=== PATIENT | female | born 1975 | race Caucasian/White ===

== ENCOUNTER 2019-12-26 16:50 | Emergency (ER) | payer BC, SELFPAY ==
[2019-12-26 17:10] VITALS: BP 113/49; PULSE 85; RESP 18; TEMP 36.3; O2SAT 100
--- NOTE | 2019-12-26 17:26 | ED.FEMALEGU ---
HPI - Female Genitourinary General Chief complaint: Urogenital-Female Stated complaint: pos uti Time Seen by Provider: 12/26/19 17:26 Source: patient and RN notes reviewed History of Present Illness HPI Narrative: Patient is a 44-year-old female presents the urgent care with complaints of urinary frequency and urgency for the last 7 days. Patient states that she has had urinary tract infections frequently and also a history of BV. Patient denies any fever, chills, nausea, vomiting. No other acute complaints. Does not use anything [id number] for her symptoms. No acute distress noted. Patient had a plan of care. Related Data Home Medications Medication Instructions Recorded Confirmed alprazolam 0.5 mg BID 12/26/19 12/26/19 fluticasone propionate [Flovent puff INHALATION DAILY 12/26/19 HFA] paroxetine HCl 30 mg PO DAILY 12/26/19 12/26/19 Allergies Allergy/AdvReac Type Severity Reaction Status Date / Time No Known Allergies Allergy Verified 12/26/19 16:57 Review of Systems Review of Systems: Narrative: CONSTITUTIONAL: Denies fever, chills, or sweats. EYES: Denies visual changes, redness, or discharge. ENT: Denies rhinorrhea, congestion, sore throat, or otalgia. CARDIOVASCULAR: Denies chest pain, palpitations, or edema. RESPIRATORY: Denies cough or dyspnea. GASTROINTESTINAL: Denies abdominal pain, nausea, vomiting, or diarrhea. GENITOURINARY: Reports of urinary frequency and urgency SKIN: Denies rash or itching. MUSCULOSKELETAL: Denies back pain, joint pain, or myalgia. NEUROLOGIC: Denies headache, numbness, or weakness. All other systems reviewed are negative, except as documented in HPI. PMFSH Comments At the time of my signature, I reviewed and agree with the nursing past medical, surgical, social, and family history. There is no relevant family history pertinent to the patient complaint. Exam Narrative: Exam Narrative: GENERAL: This is a well-nourished, well-developed patient, in no apparent distress. HEAD: normocephalic, atraumatic. EYES: PERRL. Sclera clear/white. Vision is grossly intact. EARS: External ears normal NOSE: External nose normal with no obvious nasal discharge THROAT: Mucous membranes moist NECK: Neck supple CARDIOVASCULAR: Regular rate and rhythm without murmurs, gallops, or rubs. RESPIRATORY: Clear to auscultation. Breath sounds equal bilaterally. No wheezes, rales, or rhonchi. GASTROINTESTINAL: Abdomen soft, mild suprapubic tenderness, nondistended. SKIN: warm, intact with no suspicious lesions or rash, good texture and turgor. NEURO: awake, alert, and oriented to person, place and time. There were no obvious focal neurologic abnormalities. EXTREMITIES: No clubbing, cyanosis, or edema. BACK: Negative CVA tenderness Course Vital Signs Vital signs: Vital Signs Temperature 97.4 F L 12/26/19 17:10 Pulse Rate 85 12/26/19 17:10 Respiratory Rate 18 12/26/19 17:10 Blood Pressure 113/49 L 12/26/19 17:10 Pulse Oximetry 100 12/26/19 17:10 Temperature 97.4 F L 12/26/19 17:10 Pulse Rate 85 12/26/19 17:10 Respiratory Rate 18 12/26/19 17:10 Blood Pressure 113/49 L 12/26/19 17:10 Pulse Oximetry 100 12/26/19 17:10 Reviewed MDM - Female Genitourinary MDM Narrative Medical decision making narrative: Reviewed urine analysis results with the patient. She is aware that urine analysis was negative for urinary tract infection. Advised the patient to increase water intake and avoid sugary and caffeinated drinks. If you develop any increase in symptoms associated with blood in the urine, abdominal pain, low back pain, fever, nausea, vomiting?go to the emergency room. Follow-up with PCP within 2 to 5 days or for worsening symptoms or failure to improve. Differential Diagnosis Differential diagnosis: Likely urinary tract infection, bacterial vaginosis, cervicitis and cystitis Lab Data Attestation: I reviewed the patient's lab results. Labs: Urine Glucose
== END 2019-12-26 17:45 | disposition home or self-care (01) ==
PROVIDERS: Emergency Provider Nurse Practitioner Family; PCP Family Medicine
DX: R35.0 Frequency of micturition (principal); F41.9 Anxiety disorder, unspecified
CPT/HCPCS: 81003; 99212; G0463

== ENCOUNTER 2022-03-17 19:31 | Emergency (ER) | payer BC, OTHER, SELFPAY ==
[2022-03-17 19:45] VITALS: BP 112/65; PULSE 76; RESP 18; TEMP 36.6; O2SAT 100
--- NOTE | 2022-03-17 19:46 | ED.URI ---
HPI - URI/Sore Throat General Chief Complaint: Upper Respiratory Infection Stated Complaint: cough,chest congestion Time Seen by Provider: 03/17/22 19:47 Source: patient, RN notes reviewed and old records reviewed Mode of arrival: ambulatory Limitations: no limitations History of Present Illness HPI Narrative: 46-year-old female who presents to [facility] with complaints of increased cough, congestion since Wednesday. Patient reports history of asthma and states rescue inhaler is not effective presently to relieve her cough. Patient reports some nasal congestion and drainage denies any sore throat or any ear pain. Patient reports that she has been using her rescue inhaler for her cough but has not had any relief. Patient denies any acute shortness of breath or any wheezing. MD elicited complaint: cough, rhinorrhea and nasal congestion Pertinent past history: asthma Onset (ago): day(s) (2) Consistency: progressively worsening Description of mucous: clear Treatments prior to arrival: other (Inhalers and Xyzal) Related Data Home Medications Medication Instructions Recorded Confirmed albuterol sulfate 1 inh INHALATION DIRECTED 03/17/22 03/17/22 bupropion HCl 150 mg PO BID 03/17/22 03/17/22 dextroamphetamine-amphetamine 20 mg PO DAILY 03/17/22 03/17/22 [Adderall XR] fluticasone propionate [Flovent 1 mcg INHALATION DIRECTED 03/17/22 03/17/22 HFA] paroxetine HCl 30 mg PO BID 03/17/22 03/17/22 progesterone micronized 100 mg PO DAILY 03/17/22 03/17/22 zolpidem 10 mg PO HS 03/17/22 03/17/22 Allergies Allergy/AdvReac Type Severity Reaction Status Date / Time No Known Allergies Allergy Verified 03/17/22 19:51 Review of Systems Review of Systems: CONSTITUTIONAL: Denies fever, chills, or sweats. EYES: Denies visual changes, redness, or discharge. ENT: Positive for rhinorrhea, congestion, no sore throat, or otalgia. CARDIOVASCULAR: Denies chest pain, palpitations, or edema. RESPIRATORY: Positive cough denies any acute dyspnea. GASTROINTESTINAL: Denies abdominal pain, nausea, vomiting, or diarrhea. GENITOURINARY: Denies dysuria or hematuria. SKIN: Denies rash or itching. MUSCULOSKELETAL: Denies back pain, joint pain, or myalgia. NEUROLOGIC: Denies headache, numbness, or weakness. PSYCHIATRIC: Positive for history anxiety or depression. All systems reviewed & are unremarkable except as noted in HPI and below PMFSH Past Medical History Medical History (Updated 03/18/22 @ 00:00 by Desire Dapratima) ADHD (attention deficit hyperactivity disorder) Anxiety and depression Asthma Surgical History Surgical History (Updated 03/17/22 @ 19:57 by Eloise Bruce NP) H/O: hysterectomy S/P GRAIN DISTRIBUTOR shunt Social History Social History (Updated 03/17/22 @ 20:01 by Eloise Bruce NP) Smoking status: Former smoker Alcohol intake: current Alcohol use details: Social Substance use type: does not use Living arrangements: with family Gender identity (if verbalized by the patient): Female Comments At time of signature, agree with nursing past medical, surgical, social and family history. There is no relevant family history pertinent to the presenting complaint Exam Narrative: GENERAL: Well-appearing, well-nourished, and in no acute distress. HEAD: Normocephalic, atraumatic. EYES: PERRLA and EOMI. ENT, Nares with some redness,clear rhinorrhea,no epistaxis. Mucous membranes moist. TMs normal with good light reflex throat pink with no lesions or exudates no tonsillar swelling noted some postnasal drainage NECK: Supple. No lymphadenopathy CHEST: Clear to auscultation. No acute respiratory distress. Persistent cough reports exacerbation of asthma, no tachypnea noted. HEART: Regular rate and rhythm. No murmur heard. Normal peripheral pulses. ABDOMEN: Soft, nontender, nondistended, normal active bowel sounds. EXTREMITIES: Normal range of motion. No edema. SKIN: Warm, dry, no rash. NEURO: No focal deficits. Alert and o
== END 2022-03-17 20:12 | disposition home or self-care (01) ==
PROVIDERS: Emergency Provider Registered Nurse; PCP Student in an Organized Health Care Education/Training Program
DX: J45.901 Unspecified asthma with (acute) exacerbation (principal); F90.9 Attention-deficit hyperactivity disorder, unspecified type; F41.9 Anxiety disorder, unspecified; F32.A Depression, unspecified
CPT/HCPCS: 99213; G0463

== ENCOUNTER 2022-10-26 00:38 | Day surgery (SDC) | payer BC, OTHER, SELFPAY ==
[2022-10-13 12:57] VITALS: BMI 20.3
[2022-10-26 11:22] VITALS: BP 113/74; PULSE 72; RESP 18; TEMP 36.4; O2SAT 97
[2022-10-26] MEDS: LACTATED RINGERS 1,000 ML 150 ML IV CONT (11:32)
--- NOTE | 2022-10-26 11:34 | PM.HPGS ---
History of Present Illness History of Present Illness Consent: Risks, benefits, and alternatives have been discussed and questions answered. Patient agrees to proceed with procedure. Chief complaint: neoplasm screening Narrative: Elizabet Jones is a 47 year old female here for first screening colonoscopy Review of Systems Constitutional: Constitutional: Denies headache(s) and Denies weakness Eyes: Eyes: Denies blurry vision ENT: Reports Normal hearing present, Denies headache(s) and Denies neck pain Cardiovascular: Cardiovascular: Denies chest pain and Denies dyspnea Respiratory: Respiratory: Denies dyspnea Gastrointestinal: Gastrointestinal: Reports no additional gastrointestinal complaints Genitourinary: Genitourinary: Denies dysuria Musculoskeletal: Musculoskeletal: Denies neck pain Integumentary/Breasts: Skin/Breast: Denies dry skin Neurologic: Reports Normal hearing present, Denies headache(s) and Denies weakness Psychiatric: Psychiatric: Denies anxiety Endocrine: Endocrine: Denies change in body appearance Hematologic/Lymphatic: Hematologic/Lymphatic: Denies easy bleeding Allergic/Immunologic: Allergic/Immunologic: Denies urticaria PMFSH Past Medical History Medical History (Updated 10/26/22 @ 11:35 by Reggie Larkin MD) ADHD (attention deficit hyperactivity disorder) Anxiety and depression Asthma Colon cancer screening Surgical History Surgical History (System 07/29/22 @ 14:46 by Angeline Narayan) H/O: hysterectomy S/P 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 shunt Social History Social History (System 07/29/22 @ 14:46 by Angeline Narayan) Smoking status: Former smoker Tobacco type: cigarettes Alcohol intake: current Drinks per week: 5 Alcohol use details: Social Substance use type: does not use Living arrangements: alone Gender identity (if verbalized by the patient): Female Meds Home Medications and Allergies Home Medications Medication Instructions Recorded Confirmed Type fluticasone propionate 110 See Rx Instructions .Route 04/23/20 10/13/22 Rx mcg/actuation HFA aerosol inhaler .COMPLEX #24 grams (Flovent HFA) albuterol sulfate 90 mcg/actuation 1 inh inhalation DIRECTED PRN 03/17/22 10/13/22 History aerosol inhaler Shortness Of Breath bupropion HCl 150 mg 24 hr tablet, 150 mg PO DAILY 03/17/22 10/13/22 History extended release dextroamphetamine-amphetamine ER 20 mg PO DAILY 03/17/22 10/13/22 History 20 mg 24hr capsule,extend release (Adderall XR) paroxetine HCl 30 mg tablet 60 mg PO DAILY 03/17/22 10/13/22 History zolpidem 10 mg tablet 10 mg PO HS 03/17/22 10/13/22 History Allergies Allergy/AdvReac Type Severity Reaction Status Date / Time adhesive tape Allergy Rash Verified 10/26/22 11:21 Vital Signs Vital Signs - 24 hr 10/26/22 11:22 Temperature 97.6 F Pulse Rate 72 Respiratory Rate 18 Blood Pressure 113/74 Pulse Oximetry 97 Oxygen Delivery Room Air Exam Const: General: comfortable and no acute distress HENMT: Face/Nose/Sinus: Normal nares present Eyes: General: appearance normal, both eyes and all related structures Neck: Neck: no JVD Resp: Auscultation: clear to auscultation bilaterally Cardio: Rate: regular rate Rhythm: regular rhythm GI: Inspection: non-distended GI Palp: Yes Soft to palpation Skin: General skin exam: normal color Neuro: General: gait normal Speech: normal speech Extrem: General: normal to inspection Psych: Mental Status: mental status grossly normal Assessment and Plan Assessment and plan (1) Colon cancer screening: Code(s): Z12.11 - Encounter for screening for malignant neoplasm of colon Status: Acute Assessment and Plan: colonoscopy
--- NOTE | 2022-10-26 11:41 | P.PNAN_ITS ---
Anes - Initial Pre Proc Eval Procedure: Operation Date: 10/26/22 12:30 Proposed Procedures p Screening Colonoscopy - Reggie Larkin MD Date/Time: 10/26/22 11:41 Surgeon: Reggie Larkin MD Pre Op Diagnosis: neoplasm screening Patient Data Age: 47 Gender: F Height: 1.7 m Weight: 57.1 kg Last Vital Signs Temp 36.4 C 10/26/22 11: Pulse 72 10/26/22 11:22 Resp 18 10/26/22 11:22 BP 113/74 10/26/22 11:22 Pulse Ox 97 10/26/22 11:22 O2 Del Method Room Air 10/26/22 11:22 Allergies Allergy/AdvReac Type Severity Reaction Status Date / Time adhesive tape Allergy Rash Verified 10/26/22 11:21 Home Medications Medication Instructions Recorded Confirmed Type fluticasone propionate 110 See Rx Instructions .Route 04/23/20 10/13/22 Rx mcg/actuation HFA aerosol inhaler .COMPLEX #24 grams (Flovent HFA) albuterol sulfate 90 mcg/actuation 1 inh inhalation DIRECTED PRN 03/17/22 10/13/22 History aerosol inhaler Shortness Of Breath bupropion HCl 150 mg 24 hr tablet, 150 mg PO DAILY 03/17/22 10/13/22 History extended release dextroamphetamine-amphetamine ER 20 mg PO DAILY 03/17/22 10/13/22 History 20 mg 24hr capsule,extend release (Adderall XR) paroxetine HCl 30 mg tablet 60 mg PO DAILY 03/17/22 10/13/22 History zolpidem 10 mg tablet 10 mg PO HS 03/17/22 10/13/22 History Patient hx anesthesia problems: none Family hx anesthesia problems: none Results Review: All pre-operative results and documents have been reviewed as part of the pre-operative evaluation. [facility] Past Medical History Medical History ADHD (attention deficit hyperactivity disorder) Anxiety and depression Asthma Colon cancer screening Surgical History Surgical History H/O: hysterectomy S/P CHROME CLEANER shunt Social History Social History Smoking status: Former smoker Tobacco type: cigarettes Alcohol intake: current Drinks per week: 5 Alcohol use details: Social Substance use type: does not use Living arrangements: alone Gender identity (if verbalized by the patient): Female Anes - Eval Final PreProcedure Day of Procedure 10/26/22 11:41 Patient weight: normal Heart: regular rate and rhythm Lungs: clear to auscultation Neurological: alert and oriented Last oral intake: >/= 8 hours ASA classification: II Emergent: no Anesthesia type and monitoring: general GIVS and standard monitoring Results Review: All pre-operative results and documents have been reviewed as part of the pre- operative evaluation. Informed Consent: The patient's anesthetic plan and its attendant risks and benefits were discussed with the patient/family/POA. Questions were solicited and answers provided to the satisfaction of the patient/family/POA.
[2022-10-26 12:10] VITALS: BP 98/60; PULSE 71; RESP 20; O2SAT 100
[2022-10-26 12:20] VITALS: BP 104/65; PULSE 59; RESP 16; O2SAT 100
[2022-10-26 12:30] VITALS: BP 102/71; PULSE 63; RESP 15; O2SAT 100
== END 2022-10-26 12:42 | disposition home or self-care (01) ==
PROVIDERS: PCP Student in an Organized Health Care Education/Training Program; Visit Provider Internal Medicine Gastroenterology
PROC: 0DJD8ZZ Inspection of Lower Intestinal Tract, Via Natural or Artificial Opening Endoscopic (ICD-10-PCS; CPT 45378; principal; 2022-10-26 12:30)
DX: Z12.11 Encounter for screening for malignant neoplasm of colon (principal); F90.9 Attention-deficit hyperactivity disorder, unspecified type; F41.8 Other specified anxiety disorders; J45.909 Unspecified asthma, uncomplicated; Z87.891 Personal history of nicotine dependence; Z79.51 Long term (current) use of inhaled steroids
CPT/HCPCS: 45378; J2704; J7120

== ENCOUNTER 2022-11-17 18:21 | Emergency (ER) | payer BC, OTHER, SELFPAY ==
[2022-11-17 18:29] VITALS: BP 125/59; PULSE 71; RESP 16; TEMP 35.9; O2SAT 100
--- NOTE | 2022-11-17 18:36 | ED.GENADULT ---
HPI - General Adult General Chief complaint: Upper Respiratory Infection Stated complaint: Cough,Congestion,Shortness of Breath Time Seen by Provider: 11/17/22 18:36 Source: patient, RN notes reviewed and old records reviewed Mode of arrival: ambulatory Limitations: no limitations History of Present Illness HPI narrative: 47-year-old female with a history of asthma presents with cough, congestion and intermittent shortness of breath since Wednesday when she returned from a cruise. Patient has been using her inhaler. Use just prior to arrival. Is talking in full sentences no acute distress. Related Data Home Medications Medication Instructions Recorded Confirmed albuterol sulfate 90 mcg/actuation 1 inh inhalation DIRECTED PRN 03/17/22 11/17/22 aerosol inhaler Shortness Of Breath bupropion HCl 150 mg 24 hr tablet, 150 mg PO DAILY 03/17/22 11/17/22 extended release dextroamphetamine-amphetamine ER 20 mg PO DAILY 03/17/22 11/17/22 20 mg 24hr capsule,extend release (Adderall XR) paroxetine HCl 30 mg tablet 60 mg PO DAILY 03/17/22 11/17/22 zolpidem 10 mg tablet 10 mg PO HS 03/17/22 11/17/22 Allergies Allergy/AdvReac Type Severity Reaction Status Date / Time adhesive tape Allergy Rash Verified 11/17/22 18:55 Review of Systems Review of Systems: All systems reviewed & are unremarkable except as noted in HPI and below Constitutional: Constitutional: Reports no additional constitutional complaints Eyes: Eyes: Reports no additional eye complaints ENT: Reports system reviewed and no additional complaints, except as documented Cardiovascular: Cardiovascular: Reports no additional cardiovascular complaints, Denies chest pain and Denies dyspnea Respiratory: Respiratory: Reports as per HPI, Reports no additional respiratory complaints, Denies chest congestion, Reports cough, Reports dyspnea and Reports wheezing Gastrointestinal: Gastrointestinal: Reports no additional gastrointestinal complaints, Denies abdominal pain, Denies nausea and Denies vomiting Musculoskeletal: Musculoskeletal: Reports no additional musculoskeletal complaints Integumentary/Breasts: Skin/Breast: Reports system reviewed and no additional complaints, except as docu Neurologic: Reports system reviewed and no additional complaints, except as documented Psychiatric: Psychiatric: Reports no additional psychiatric complaints Allergic/Immunologic: Allergic/Immunologic: Reports no additional allergic/immunologic complaints PMFSH Past Medical History Medical History ADHD (attention deficit hyperactivity disorder) Anxiety and depression Asthma Colon cancer screening Surgical History Surgical History H/O: hysterectomy S/P 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 There is no relevant family history pertinent to the patient complaint. Exam Const: General: cooperative, healthy appearing, comfortable, no acute distress, well developed, alert and well nourished Nutritional Appearance: well nourished Orientation/consciousness: patient oriented x3 Limitations: no limitations HENMT: Head: normal to inspection Ears: hearing grossly normal bilaterally and external ears normal Face/Nose/Sinus: Normal external nose present, Normal nares present, Normal nasal mucous membranes and turbinates present and normal facial exam Face and sinus: normal facial exam Mouth: Yes Normal oral and palatal mucosa present, Yes lip normal and Yes moist m
== END 2022-11-17 18:59 | disposition home or self-care (01) ==
PROVIDERS: Emergency Provider Nurse Practitioner; PCP Student in an Organized Health Care Education/Training Program
DX: J40 Bronchitis, not specified as acute or chronic (principal); Z87.891 Personal history of nicotine dependence; F90.9 Attention-deficit hyperactivity disorder, unspecified type; F41.9 Anxiety disorder, unspecified; F32.A Depression, unspecified
CPT/HCPCS: 99213; G0463

== ENCOUNTER 2023-10-18 19:22 | Emergency (ER) | payer BC, SELFPAY ==
[2023-10-18 19:39] VITALS: BP 113/50; PULSE 82; RESP 16; TEMP 36; O2SAT 100
--- NOTE | 2023-10-18 20:47 | ED.URI ---
HPI - URI/Sore Throat General Chief Complaint: Upper Respiratory Infection Stated Complaint: Cough,Congestion Time Seen by Provider: 10/18/23 20:40 Source: patient and RN notes reviewed Mode of arrival: ambulatory Limitations: no limitations History of Present Illness HPI Narrative: Patient presents today with a 5 day history of cough, congestion, subjective fever, chills and sweats, chest tightness, and intermittent shortness of breath. She has been taking ibuprofen and using her Flovent and rescue albuterol inhaler. States she has been using her albuterol inhaler more frequently than normal. History of asthma. Related Data Home Medications Medication Instructions Recorded Confirmed albuterol sulfate 90 mcg/actuation 1 inh inhalation DIRECTED PRN 03/17/22 10/18/23 aerosol inhaler Shortness Of Breath bupropion HCl 150 mg 24 hr tablet, 150 mg PO DAILY 03/17/22 10/18/23 extended release dextroamphetamine-amphetamine ER 20 mg PO DAILY 03/17/22 10/18/23 20 mg 24hr capsule,extend release (Adderall XR) paroxetine HCl 30 mg tablet 60 mg PO DAILY 03/17/22 10/18/23 zolpidem 10 mg tablet 10 mg PO PRN PRN Insomnia 03/17/22 10/18/23 Allergies Allergy/AdvReac Type Severity Reaction Status Date / Time adhesive tape AdvReac Mild Rash Verified 10/18/23 20:25 Review of Systems Review of Systems: CONSTITUTIONAL: + subjective fever, chills, sweats EYES: Denies visual changes, redness, or discharge. ENT: Denies rhinorrhea, sore throat, or otalgia.+ congestion CARDIOVASCULAR: Denies chest pain, palpitations, or edema. RESPIRATORY: + cough, shortness of breath, chest tightness GASTROINTESTINAL: Denies abdominal pain, nausea, vomiting, or diarrhea. GENITOURINARY: Denies dysuria or hematuria. SKIN: Denies rash, itching, or wounds. MUSCULOSKELETAL: Denies back pain, joint pain, or myalgia. NEUROLOGIC: Denies headache, numbness, tingling, or weakness. PSYCH: Denies depression or anxiety. 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 Please see nursing chart for further information. There is no relevant family history pertinent to the presenting complaint Exam Narrative: GENERAL: Well-appearing, well-nourished, and in no acute distress. HEAD: Normocephalic, atraumatic. EYES: EOMI. No redness or drainage. Conjunctivae normal. ENT: Mucous membranes pink and moist. Nares mildly congested. No rhinorrhea. TMs normal bilaterally. Throat normal. Uvula midline. NECK: Normal AROM. Supple. No lymphadenopathy. CHEST: No respiratory distress. Clear to auscultation. HEART: Regular rate and rhythm. No murmur appreciated. Normal peripheral pulses. EXTREMITIES: Normal range of motion. No edema. SKIN: Warm, dry, no rash. Capillary refill normal. Normal skin turgor. NEURO: No focal deficits. Alert and oriented x3. Gait steady. PSYCH: Normal affect. No signs of depression or anxiety. Course Course Level of Care: Express Care Visit Vital Signs Vital signs: Vital Signs Temperature 96.8 F L 10/18/23 19:39 Pulse Rate 82 10/18/23 19:39 Respiratory Rate 16 10/18/23 19:39 Blood Pressure 113/50 L 10/18/23 19:39 Pulse Oximetry 100 1
== END 2023-10-18 20:53 | disposition home or self-care (01) ==
PROVIDERS: Emergency Provider Nurse Practitioner; PCP Student in an Organized Health Care Education/Training Program
DX: J45.901 Unspecified asthma with (acute) exacerbation (principal); J06.9 Acute upper respiratory infection, unspecified; Z79.899 Other long term (current) drug therapy; Z87.891 Personal history of nicotine dependence
CPT/HCPCS: 99213; G0463

== ENCOUNTER 2023-10-25 18:41 | Emergency (ER) | payer BC, SELFPAY ==
[2023-10-25 18:54] VITALS: BP 128/71; PULSE 88; RESP 18; TEMP 36.4; O2SAT 99
--- NOTE | 2023-10-25 19:28 | ED.EYEPROB ---
HPI - Eye Problem General Chief complaint: Eye Problems Stated complaint: eye irritation Time Seen by Provider: 10/25/23 19:23 Source: patient and RN notes reviewed Mode of arrival: ambulatory Limitations: no limitations History of Present Illness HPI Narrative: Patient presents today complaining of irritation to her right lateral eye x3 days. Denies itchiness. She has tried no rneu-oyp-eovirip treatment prior to arrival. She has been treated recently for upper respiratory symptoms with Augmentin prednisone. States these symptoms have significantly improved. Related Data Home Medications Medication Instructions Recorded Confirmed albuterol sulfate 90 mcg/actuation 1 inh inhalation DIRECTED PRN 03/17/22 10/25/23 aerosol inhaler Shortness Of Breath paroxetine HCl 30 mg tablet 60 mg PO DAILY 03/17/22 10/25/23 Allergies Allergy/AdvReac Type Severity Reaction Status Date / Time adhesive tape AdvReac Mild Rash Verified 10/25/23 19:05 Review of Systems Review of Systems: CONSTITUTIONAL: Denies body aches, fever, chills, or sweats. EYES: Denies visual changes, or discharge.+ redness and soreness to the right eye ENT: Denies rhinorrhea, congestion, sore throat, or otalgia. CARDIOVASCULAR: Denies chest pain, palpitations, or edema. RESPIRATORY: Denies cough or dyspnea. GASTROINTESTINAL: Denies abdominal pain, nausea, vomiting, or diarrhea. GENITOURINARY: Denies dysuria or hematuria. SKIN: Denies rash, itching, or wounds. MUSCULOSKELETAL: Denies back pain, joint pain, or myalgia. NEUROLOGIC: Denies headache, numbness, tingling, or weakness. PSYCH: Denies depression or anxiety. [facility] Past Medical History Medical History ADHD (attention deficit hyperactivity disorder) Anxiety and depression Asthma Colon cancer screening Surgical History Surgical History H/O: hysterectomy S/P PRINT COLOR OPERATOR shunt Social History Social History Smoking status: Former smoker Tobacco type: cigarettes Alcohol intake: current Drinks per week: 5 Alcohol use details: Social Substance use type: does not use Living arrangements: alone Gender identity (if verbalized by the patient): Female Comments Reviewed Exam Narrative: GENERAL: Well-appearing, well-nourished, and in no acute distress. HEAD: Normocephalic, atraumatic. EYES: EOMI. PERRL. Right eye: Scantly injected conjunctiva to the right lateral eye. No drainage. Lids and lashes normal. Left eye normal. ENT: Mucous membranes pink and moist. NECK: Normal AROM. CHEST: No respiratory distress. EXTREMITIES: Normal range of motion. No edema. SKIN: Warm, dry, no rash. Capillary refill normal. Normal skin turgor. NEURO: No focal deficits. Alert and oriented x3. Gait steady. PSYCH: Normal affect. No signs of depression or anxiety. Course Course Level of Care: Express Care Visit Vital Signs Vital signs: Vital Signs Temperature 97.6 F 10/25/23 18:54 Pulse Rate 88 10/25/23 18:54 Respiratory Rate 18 10/25/23 18:54 Blood Pressure 128/71 10/25/23 18:54 Pulse Oximetry 99 10/25/23 18:54 Oxygen Delivery Room Air 10/25/23 18:54 Temperature 97.6 F 10/25/23 18:54 Pulse Rate 88 10/25/23 18:54 Respiratory Rate 18 10/25/23 18:54 Blood Pressure 128/71 10/25/23 18:54 Pulse Oximetry 99 10/25/23 18:54 Oxygen Delivery Room Air 10/25/23 18:59 Reviewed MDM - Eye Problem MDM Narrative Medical decision making narrative: Recommend patient treat her eye irritation with some [id number]-uilelsi drops such as Zaditor. Patient agreeable to plan. Anticipatory guidance given. Differential Diagnosis Differential diagnosis: Likely corneal abrasion and conjunctivitis Critical Care Time Critical Care Time Critical Care Time: No Discharge Plan Di
== END 2023-10-25 19:33 | disposition home or self-care (01) ==
PROVIDERS: Emergency Provider Nurse Practitioner; PCP Student in an Organized Health Care Education/Training Program
DX: H10.89 Other conjunctivitis (principal); Z87.891 Personal history of nicotine dependence; J45.909 Unspecified asthma, uncomplicated; F41.9 Anxiety disorder, unspecified; F32.A Depression, unspecified
CPT/HCPCS: 99212; G0463

== ENCOUNTER 2023-12-21 11:49 | Emergency (ER) | payer BC, SELFPAY ==
[2023-12-21 12:10] VITALS: BP 123/71; PULSE 70; RESP 16; TEMP 36.7; O2SAT 100
--- NOTE | 2023-12-21 12:17 | ED.URI ---
HPI - URI/Sore Throat General Chief Complaint: Upper Respiratory Infection Stated Complaint: cough Source: patient and RN notes reviewed Mode of arrival: ambulatory Limitations: no limitations History of Present Illness HPI Narrative: 48 y/o female presented for c/o headache, body aches, cough, n/v/d, fever/chills. Onset yesterday. Reports tested positive for influenza. Denies sob, wheezing, or chest pain. MD elicited complaint: cough Related Data Home Medications Medication Instructions Recorded Confirmed albuterol sulfate 90 mcg/actuation 1 inh inhalation DIRECTED PRN 03/17/22 12/21/23 aerosol inhaler Shortness Of Breath paroxetine HCl 30 mg tablet 60 mg PO DAILY 03/17/22 12/21/23 dextroamphetamine-amphetamine 5 mg 5 mg PO DAILY 12/21/23 12/21/23 tablet valacyclovir 500 mg tablet 500 mg PO DAILY 12/21/23 12/21/23 zolpidem 10 mg tablet 10 mg PO HS 12/21/23 12/21/23 Allergies Allergy/AdvReac Type Severity Reaction Status Date / Time adhesive tape AdvReac Mild Rash Verified 12/21/23 12:02 Review of Systems Review of Systems: CONSTITUTIONAL: Endorses malaise, chills, sweats, fever EYES: Denies visual changes, redness, or discharge ENT: Reports rhinorrhea, denies otalgia, sore throat CARDIOVASCULAR: Denies chest pain, palpitations, edema RESPIRATORY: Reports cough, post nasal drainage. Denies dyspnea GASTROINTESTINAL: Denies abdominal pain, nausea, vomiting, diarrhea SKIN: Denies rash or itching MUSCULOSKELETAL: Endorses myalgia PMFSH Past Medical History Medical History ADHD (attention deficit hyperactivity disorder) Anxiety and depression Asthma Colon cancer screening Surgical History Surgical History H/O: hysterectomy S/P SMALL ANIMAL CARETAKER shunt Social History Social History Smoking status: Former smoker Tobacco type: cigarettes Alcohol intake: current Drinks per week: 5 Alcohol use details: Social Substance use type: does not use Living arrangements: alone Gender identity (if verbalized by the patient): Female Exam Narrative: GENERAL: mildly Ill-appearing, nontoxic no acute distress. EYES: PERRLA, conjunctivae clear ENT: Mucous membranes moist. TM pearly with dull light reflex bilaterally; no tragal tenderness. Oropharynx erythematous without lesions or exudate, no drooling, no hoarseness, no trismus, uvula midline. No tripod positioning, muffled voice, soft palate or pharyngeal wall bulging NECK: Supple. No lymphadenopathy CHEST: Clear to auscultation, breath sounds equal. No wheezing, rhonchi, rales, or stridor. No respiratory distress, speaks in full sentences. HEART: Regular rate and rhythm. No murmur heard. SKIN: Warm, dry, no rash. NEURO: Alert and oriented x3. Course Course Emergency Course: Patient is aware of diagnosis, understands and agrees to treatment plan. Anticipatory guidance given. Patient agrees to follow-up as directed and is aware of reasons to seek care at the emergency department. Portions of this record may have been created with voice recognition software Level of Care: Express Care Visit Vital Signs Vital signs: Vital Signs Temperature 98.1 F 12/21/23 12:10 Pulse Rate 70 12/21/23 12:10 Respiratory Rate 16 12/21/23 12:10 Blood Pressure 123/71 12/21/23 12:10 Pulse Oximetry 100 12/21/23 12:10 Oxygen Delivery Room Air 12/21/23 12:10 Temperature 98.1 F 12/21/23 12:10 Pulse Rate 70 12/21/23 12:10 Respiratory Rate 16 12/21/23 12:10 Blood Pressure 123/71 12/21/23 12:10 Pulse Oximetry 100 12/21/23 12:10 Oxygen Delivery Room Air 12/21/23 12:10 reviewed MDM - URI/Sore Throat MDM Narrative Medical decision making narrative: Influenza positive. Discussed risks/benefits of Tamiflu, pt requests Rx. Advised supportive measur
== END 2023-12-21 12:22 | disposition home or self-care (01) ==
PROVIDERS: Emergency Provider Nurse Practitioner Family; PCP Student in an Organized Health Care Education/Training Program
DX: J10.1 Influenza due to other identified influenza virus with other respiratory manifestations (principal); Z87.891 Personal history of nicotine dependence; J45.909 Unspecified asthma, uncomplicated; F90.9 Attention-deficit hyperactivity disorder, unspecified type; F41.9 Anxiety disorder, unspecified; F32.A Depression, unspecified; Z98.2 Presence of cerebrospinal fluid drainage device
CPT/HCPCS: 87804; 99213; G0463

== ENCOUNTER 2024-09-17 15:33 | Emergency (ER) | payer BC, SELFPAY ==
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
[2024-09-17 15:44] VITALS: BP 128/72; PULSE 62; RESP 16; TEMP 36.7; O2SAT 100
== END 2024-09-17 16:13 | disposition home or self-care (01) ==
PROVIDERS: Emergency Provider Nurse Practitioner Family; PCP Student in an Organized Health Care Education/Training Program
DX: J01.90 Acute sinusitis, unspecified (principal); J45.901 Unspecified asthma with (acute) exacerbation; F41.9 Anxiety disorder, unspecified; Z87.891 Personal history of nicotine dependence; Z98.2 Presence of cerebrospinal fluid drainage device
CPT/HCPCS: 99213; G0463

== ENCOUNTER 2025-03-24 18:52 | Emergency (ER) | payer SELFPAY ==
--- NOTE | 2025-03-24 18:54 | ED.URI ---
HPI - URI/Sore Throat General Chief Complaint: Upper Respiratory Infection Stated Complaint: sinus infectiond Time Seen by Provider: 03/24/25 18:53 Source: patient Mode of arrival: ambulatory Limitations: no limitations History of Present Illness HPI Narrative: patient is a 49-year-old female who presents with cough, wheezing, congestion, sinus pressure for 5 days. Patient has history of asthma and has been using albuterol inhaler. Denies any fever, chills, nausea, vomiting, diarrhea. Has also used [id number] Sudafed and Mucinex. Related Data Home Medications ?Medication ?Instructions ?Recorded ?Confirmed ?Last Taken ?Type paroxetine HCl 30 mg tablet 60 mg PO DAILY 03/17/22 03/24/25 10/25/22 History dextroamphetamine-amphetamine 5 mg 25 mg PO DAILY 12/21/23 09/27/24 Unknown History tablet zolpidem 10 mg tablet 10 mg PO HS 12/21/23 03/24/25 Unknown History bupropion HCl 150 mg tablet,12 hr 150 mg PO BID 09/17/24 03/24/25 Unknown History sustained-release (Wellbutrin SR) albuterol sulfate 90 mcg/actuation inhalation 03/24/25 Unknown History aerosol inhaler bupropion HCl 300 mg 24 hr tablet, mg PO 03/24/25 Unknown History extended release lisdexamfetamine 50 mg capsule mg 03/24/25 Unknown History (Vyvanse) spironolactone 50 mg tablet mg 03/24/25 Unknown History Allergies Allergy/AdvReac Type Severity Reaction Status Date / Time adhesive tape Allergy Mild Rash Verified 03/24/25 18:54 Review of Systems Review of Systems: All systems reviewed & are unremarkable except as noted in HPI and below Constitutional: Constitutional: Denies chills, Denies fatigue, Denies fever(s), Denies headache(s), Denies malaise and Denies weakness Eyes: Eyes: Denies blurry vision, Denies itchy eyes and Denies loss of vision ENT: Denies otalgia, Denies headache(s), Reports nasal congestion, Denies sinus pain, Reports sinus pressure and Denies sore throat Cardiovascular: Cardiovascular: Denies chest pain, Denies irregular heart rhythm and Denies dyspnea Respiratory: Respiratory: Reports cough, Denies dyspnea and Reports wheezing Gastrointestinal: Gastrointestinal: Denies abdominal pain, Denies diarrhea, Denies nausea and Denies vomiting Musculoskeletal: Musculoskeletal: Denies back pain, Denies myalgias and Denies arthralgias Integumentary/Breasts: Skin/Breast: Denies pruritus and Denies rash Neurologic: Denies headache(s), Denies loss of vision and Denies weakness Psychiatric: Psychiatric: Reports no additional psychiatric complaints Endocrine: Endocrine: Denies fatigue Allergic/Immunologic: Allergic/Immunologic: Denies itchy eyes PMFSH Past Medical History Medical History Colon cancer screening Anxiety and depression ADHD (attention deficit hyperactivity disorder) Asthma Surgical History Surgical History H/O: hysterectomy S/P DATA INTEGRATION ANALYST shunt Social History Social History Smoking status: Former smoker Tobacco type: cigarettes Alcohol intake: current Drinks per week: 5 Alcohol use details: Social Substance use type: does not use Living arrangements: alone Gender identity (if verbalized by the patient): Female Comments At time of signature, agree with nursing past medical, surgical, social and family history. There is no relevant family history pertinent to the presenting complaint. Exam Const: General: cooperative, healthy appearing, comfortable, no acute distress and well nourished Nutritional Appearance: well nourished Orientation/consciousness: patient oriented x3 Limitations: no limitations HENMT: Head: normal to inspection, normocephalic and atraumatic Ears: hearing grossly normal bilaterally, external ears normal, TM's normal bilaterally, EAC's normal and no periauricular adenopathy Face/Nose/Sinus: Normal external nose present, Abnormal mucous membranes and turbinates present erythematous bilateral and diffuse, normal facial exam, sinuses nontender and face symmetric Face and sinus: normal facial exam, sinuses nontender and face symmetric Mouth: Yes Normal oral and palatal mucosa present, Yes lip normal, Yes tongue normal, Yes Normal salivary glands and ducts present, Yes oropharynx normal and Yes moist mucous membranes Teeth and gingiva: dentition normal Throat: posterior oropharynx normal, tonsils normal and uvula midline Eyes: General: appearance normal, both eyes and all related structures Alignment and Position: alignment normal and position normal Periorbital: periorbital findings normal Eyelids: eyelids normal Pupils: Equal, round and reactive pupils present Neck: Neck: normal visual inspection, full ROM, no lymphadenopathy and supple Chest: Chest palpation & inspection: normal inspection of the chest and normal palpation of entire chest wall Resp: Effort & Inspection: normal respiratory effort, able to speak in complete sentences and Actively coughing productive Auscultation: no crackles, no rales, no rhonchi and wheezes inspiratory wheezes and right upper Cardio: Rate: regular rate Rhythm: regular rhythm Heart sounds: S1 normal heart sound present and S2 normal heart sound present GI: Inspection: normal to inspection Skin: General skin exam: normal color and no rashes or lesions noted Neuro: General: patient oriented x3 and moves all extremities Cranial nerves: Yes Equal, round and reactive pupils present Speech: normal speech Gait exam (Neuro): Normal gait present Extrem: General: normal to inspection, full ROM and no edema Psych: Appearance: grossly normal and well kempt Mental Status: mental status grossly normal Speech and movement: Normal speech and movement present Affect: normal affect Attitude: cooperative Thought process: Normal thought process present Course Course Emergency Course: Discharge instructions reviewed with patient, as well as provided in writing per nursing staff. The instructions also include specific and strict return/GO TO THE ER as well as f/u information. All questions have been answered, and the patient deny any further questions with discharge and discharge plan. Portions of this record may have been created with voice recognition software Level of Care: Express Care Visit Vital Signs Vital signs: Reviewed MDM - URI/Sore Throat MDM Narrative Medical decision making narrative: Pt well hydrated appearing, in no respiratory distress, hemodynamically stable. Recommend supportive care. The patient is stable at time of discharge the clinical impression was discussed and the patient was given the opportunity to ask questions, which were addressed as completely as possible given the information available at present. Anticipatory guidance and return to care precautions were discussed and the importance of primary care follow-up was stressed and encouraged. The patient voiced understanding of the plan, indications to return, and the need for follow-up. Exam findings show no acute concerns or changes Patient is appropriate for outpatient treatment and follow-up. Differential diagnosis considered: Bardales virus, strep pharyngitis, allergic rhinitis, upper respiratory tract infection, sinusitis, rhinosinusitis, nasopharyngitis. viral pharyngitis, otitis media, otitis externa, otitis effusion, foreign body, cerumen impaction, viral syndrome, and influenza.? Medical Records Attestation: I reviewed the patient's medical records. Discharge Plan Discharge Clinical Impression: Upper respiratory infection with cough and congestion, History of asthma Patient Disposition: Home Condition: Stable Instructions: Upper Respiratory Infection (ED) Additional Instructions: Take antibiotic as prescribed. Take steroids per package instructions. Use Tessalon Perles as needed for cough. Use inhaler with spacer as needed. Other symptomatic treatments include: -Alternate Tylenol and Motrin per package directions for fever or pain: Tylenol 650-1000mg by mouth every 4-6 hours. Do not exceed 4000mg in 24 hours. Advil (Ibuprofen) 600 mg by mouth every 6 hours. Do not exceed 2400mg in 24 hours. 8 AM: Tylenol 11 AM: Ibuprofen 2 PM: Tylenol 5 PM: Ibuprofen 8 PM: Tylenol 11 PM: Ibuprofen 2 AM: Tylenol 5 AM: Ibuprofen -Antihistamine medication such as Benadryl at night and Zyrtec/Claritin/Yana during the day can help improve symptoms. -Use Flonase twice a day for 5 days then daily to help reduce the inflammation and dry up your sinuses. -You can also use Sudafed or Mucinex. Be sure to drink plenty of water with these medications at least 8 ounces with every dose and it is important to drink 8 to 10 glasses of water per day. Water is a natural decongestant -Eat and drink things that are easy to swallow, like tea or soup, or popsicles. -Oral rinses such as: Salt water gargles and/or may use topical anesthetic (eg. Chloraseptic spray) or lozenges to relieve dryness or throat pain). -Frequent hand washing or hand menswear salesperson is one of the best ways to prevent spread of infection. -Using a vaporizer or humidifier at night will also help thin secretions and help with coughing up phlegm. Call your Primary Care Doctor and make a follow-up appointment in 3 days. If your cough worsens, you develop a fever greater than 103, you develop shaking chills, a fast heartbeat, trouble breathing and/or feel you are are breathing much faster than usual, call your Primary Care Doctor or go to the ER. Patient Language: [place] Prescriptions: New (DME) Aerochamber MV Spacer See Rx Instructions .Route Qty: 1 0RF Rx Instructions: As directed benzonatate 100 mg capsule 100 mg PO BID PRN (Reason: cough) Qty: 14 0RF methylprednisolone [Medrol (Elfego)] 4 mg tablets,dose pack See Rx Instructions .ROUTE .COMPLEX Qty: 21 0RF Rx Instructions: orally per package directions albuterol sulfate 90 mcg/actuation HFA aerosol inhaler 2 puff inhalation QID PRN (Reason: shortness of breath or wheezing) Qty: 6.7 0RF amoxicillin-pot clavulanate 875-125 mg tablet 1 tablet PO Q12H 10 Days Qty: 20 0RF No Action spironolactone 50 mg tablet bupropion HCl 300 mg tablet extended release 24 hr PO lisdexamfetamine [Vyvanse] 50 mg capsule albuterol sulfate 90 mcg/actuation HFA aerosol inhaler INHALATION paroxetine HCl 30 mg tablet 60 mg PO DAILY zolpidem 10 mg tablet 10 mg PO HS dextroamphetamine-amphetamine 5 mg tablet 25 mg PO DAILY bupropion HCl [Wellbutrin SR] 150 mg Tablet Sustained-Release 12 Hr 150 mg PO BID (DME) Aerochamber Plus Z Stat Spacer See Rx Instructions .Route Qty: 1 0RF Rx Instructions: As directed fluticasone propionate [Flovent HFA] 110 mcg/actuation HFA aerosol inhaler See Rx Instructions .ROUTE .COMPLEX Qty: 24 0RF Dose Instruction: USE 1 PUFF TWICE DAILY Rx Instructions: USE 1 PUFF DAILY Follow-up/Referrals: Gennaro,Baldev Shine APRN [Primary Care Provider] - 3 Days Time of Disposition: 19:10
--- OUTSIDE RECORDS SUMMARY | 2025-03-24 18:54 | XMS_ITS | Clinical Summary ---
Author Organization [facility] Address [address] [place] [address] Phone Care Team Providers Care Insulation Batting Machine Operator Name Role Phone Rick Potts MD Unavailable [phone] Baldev Burdick PROFESSOR OF GEOLOGY Primary Care Provider [phone] Allergies Active Allergy Reactions Criticality Noted Date Comments Adhesive Rash Medium 10/06/2021 Medipore tape Tapentadol Rash Medium 10/06/2021 Medipore tape Vortioxetine Hives,Itching,Urticaria Medium 03/07/2021 Medications zolpidem (AMBIEN) 5 mg tablet take 1 Tablet by oral route every day at bedtime 0 0 4 Active fluticasone (FLOVENT DISKUS) 50 mcg/actuation diskus inhaler inhale 1 puff by inhalation route 2 times every day 0 2 Active fluticasone (FLONASE) 50 mcg/actuation nasal spray spray 1 spray by intranasal route every day in each nostril 0 2 Active copper (PARAGARD T 380A) 380 square mm IUD vaginally inserted, good for 10 years 0 Device 0 7 02/23/20 27 Active acetaminophen (TYLENOL) 325 mg tabletIndicatio ns:Fever Take 2 tablets (650 mg total) by mouth every 4 (four) hours as needed for pain. 30 tablet 8 Active Additional Information Patient not taking.Reported on 01/04/2019 ALPRAZolam (XANAX) 0.5 mg tablet PRN 5 8 Active cetirizine 10 mg tablet,disinteg rating daily. 2 Active PARoxetine (PAXIL) 40 mg tablet Active zolpidem (AMBIEN) 10 mg tabletIndicatio ns:Sleep-Onset Insomnia Take 10 mg by mouth. 6 Active cholecalciferol (cholecalcifero l) 400 unit capsule Take by mouth. 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 Hospital Encounter [facility] - Imaging [address] [facility] [facility] [address] [place] [id number] Screening mammogram, encounter for Discharge Disposition: Discharge to home or self care from Last 3 Months Immunizations Immunization Administration Dates Next Due Influenza, Quadrivalent, Spl it, Preservative Free, Intramuscular 12/16/2020 Influenza, Trivalent, IM (MDV) 01/03/2014 Influenza, Unspecified 09/10/2022,2021,10/04/2018,01/03 Pneumococcal Conjugate Pcv20 01/22/2023 Tdap 12/16/2020 Surgical History Surgery Date Site/Laterality Comments OTHER SURGICAL HISTORY 1996 Hydrocephalus: [employer]ICE [employer] DEVELOPMENT Shunt OTHER SURGICAL HISTORY Dysplasia of cervix: Cryotherapy OTHER SURGICAL HISTORY 2007 shunt revision OTHER SURGICAL HISTORY 2009 bunion removal AUGMENTATION MAMMOPLASTY 2012 augmentation mammoplasty OTHER SURGICAL HISTORY 2013 Malignant melanoma: Excision Medical History Medical History Date Comments Hx Other Medical 1996 Hydrocephalus Hx Other Medical Dysplasia of ce rvix Hx Other Medical 2002 Post dep ression Malignant melanoma (HCC) 2014 Maligna nt melanoma; Comments: CCK 04/23/2014 - wide local excision, sentinal node biopsy and groin discetion, Stage 3A Family History Medical History Relation Name Comments Hypertension Father Throat cancer Maternal Grandfather Hypertension Mother Breast cancer Mother's Sister Cancer, sarah ast; Other Other 1 No family histo ry of Ovarian cancer; Other Other 2 No family histo ry of Cancer, colon; Heart disease Paternal Grandfather Hypertension Paternal Grandfather Breast cancer Paternal Grandmother Hypertension Son Stroke Son Relation Name Status Comments Father Maternal Grandfather Mother Mother's Sister Other 1 Other 2 Paternal Grandfather Paternal Grandmother Son Social History Tobacco Use Types Packs/Day Years Used Date Smoking Tobacco: Former Smokeless Tobacco: Never Tobacco Cessation:Counseling Given: No Alcohol Use Standard Drinks/Week Comments Yes 0 (1 standard drink = 0.6 oz pur e alcohol) Personal Safety Answer Date Recorded Have you ever been in or are you currently in a harmful physical or emotional relationship or is someone making you feel afraid or unsafe? Denies 12/07/2024 Comments No Sex and Gender Information Value Date Recorded Sex Assigned at Not on file Legal Sex Female 2:07 AM NATURAL DEVELOPER Gender Identity Not on file Sexual Orientation Not on file Obstetrics History Last Filed Vital Signs Vital Sign Reading Time Taken Comments Blood Pressure 110/65 12/08/2024 1:50 AM NATURAL DEVELOPER Pulse 65 12/08/2024 1:50 AM NATURAL DEVELOPER Temperature 36.9 C (98.5 F) 12/07/2024 9:46 PM NATURAL DEVELOPER Respiratory Rate 18 12/08/2024 1:50 AM NATURAL DEVELOPER Oxygen Saturation 96% 12/08/2024 1:50 AM NATURAL DEVELOPER Inhaled Oxygen Concentration - - Weight 60.1 kg (132 lb 7.9 oz) 12/07/2024 9:46 P M NATURAL DEVELOPER Height 170.2 cm (5' 7 ) 12/07/2024 9:46 PM NATURAL DEVELOPER Body Mass Index 20.75 12/07/2024 9:46 PM NATURAL DEVELOPER Plan of Treatment Health Maintenance Due Date Last Done Comments Colon Cancer Screening-Colonoscopy 1974 Depression Screening 1974 Hepatitis C Screening 1974 Hepatitis B Screening 1992 Regular Well Visit/Exam 18-64 1992 Zoster Vaccine (1 of 2) 1993 Covid-19 Vaccine (3 - Pfizer risk series) 07/29/2021 07/01/2021, 06/05/2021 Influenza Vaccine (#1) 2024 2, 11/23/2021, 12/16/2020, Additional history exists Breast Cancer Screening-Mammogram 01/10/2026 01/10/2025, 09/22/2022, 07/25/2021, Additional history exists DTaP/Tdap/Td Vaccine (2 - Td or Tdap) 12/16/2030 12/16/2020 Cervical Cancer Screening Discontinued 2015, 10/09/2013, 10/09/2013 Pneumococcal vaccine <65 Completed 01/22/2023 Medical Devices Implanted Type Area Carrier Loader Device Identifier Shelf Expiration Date Model / Serial / Lot CodSelectron/[employer] [id number] Bactiseal 14cm Csf Ventricular Catheter External Drainage Sterile - S0 - [id number] Implanted:Qty: 1 on 08/02/2018 by Lenard Lopez Jr., MD at [facility] Shunt [employer] [id number] 11/21/2018 [id number] / 0 / [id number] Procedures Procedure Name Priority Date/Time Associated Diagnosis Comments SCREENING MAMMOGRAM BILATERAL W TIMOTEO W IMPLANTS Schedule Routine, Read Routine (OP Routine) 01/10/2025 4:00 PM NATURAL DEVELOPER Screening mammogram, encounter for GENITAL FLUID PAP SMEAR, THIN PREP AND HPV Routine 06/30/2016 12:00 AM CDT from Last 3 Months or Most Recently Relevant to Health Maintenance Results * Screening Mammogram Bilateral W Timoteo W Implants (01/10/2025 4:00 PM NATURAL DEVELOPER) Anatomical Region Laterality Modality Breast Bilateral Mammography Narrative 01/11/2025 6:30 AM NATURAL DEVELOPER Examination: Screening Mammogram Bilateral W Timoteo W Implants: 01/10/25 Prior Study Comparisons: Relevant prior studies available at the time of interpretation were reviewed. Findings: Bilateral There is no suspicious mass, calcification, or distortion in either breast. The breasts are extremely dense, which lowers the sensitivity of mammography. The patient will be notified of results by letter. Impression: BI-RADS ATLAS category (overall): 2 - Benign Routine Screening Mammogram in 1 Yr is recommended for bilateral Overall Assessment: 2 - Benign us Self Screening Mammogram IMG MAMMO PROCEDURES Fi nal Result * Genital fluid pap smear, thin prep and HPV (06/30/2016 12:00 AM CDT) Variable comment CDR HISTORICAL RESULTS Comment:NEGATIVE FOR INTRAEP ITHELIAL LESION AND MALIGNANCY. Statement of adequacy CDR HISTORICAL RESULTS Comment: Satisfactory for evaluation. Endocervical and/or squamous metaplastic cells (endocervical component) are present. Human papillomavirus, genotype 18/45 Negative Negative CDR HISTORICAL RESULTS Comment: This test detects fourteen high-risk HPV types (16/18/31/33/35/39/45/ 51/52/56/58/59/66/68) without differentiation. Genital 06/30/2016 us Historical Provider LAB CYTOLOGY ORDERABLES F inal Result CDR HISTORICAL RESULTS from Last 3 Months or Most Recently Relevant to Health Maintenance Insurance [facility] CHOICE PLUS [facility] CHOICE PLUS [facility] ACCESS CHOICE [id number] [place] [id number] Advance Directives For more information, please contact: [phone] * Full Code (Latest Code Status on File) Date Activated Date Inactivated Comments 08/01/2018 11:05 PM 08/03/2018 4:45 PM Care Teams Insulation Batting Machine Operator Relationship Specialty Start Date End Date Baldev Burdick NP [address] [place] [address] PCP - General Nurse Practitioner 12/08/24 Rick Potts MD [address] [facility] [address] [place] [address] Consulting Physician Endocrinology Diabetes & Metabolism 11/18/21
--- OUTSIDE RECORDS SUMMARY | 2025-03-24 18:54 | XMS_ITS ---
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 Past Treatment and Therapy Plans No past plan information found. Lifetime Dose Tracking * Chemical Lifetime Dose Automatic Entry Manual Entr y Dose Length Product 981 mGy-cm 981 mGy-cm 0 mGy-cm
--- OUTSIDE RECORDS SUMMARY | 2025-03-24 18:54 | XMS_ITS | Clinical Summary ---
Author Organization [facility] Address [address] [place] [address] Care Team Providers Care Platemaker Name Role Phone Unavailable Primary Care Provider Unavailabl e Allergies Active Allergy Reactions Criticality Noted Date Comments Tape Rash Low 10/06/2021 Medipore tape Tapentadol Rash Medium 10/06/2021 Medipore tape Vortioxetine Hives,Itching 03/07/2021 Medications vitamin D3, cholecalciferol, 10 MCG (400 UNIT) tablet Active cetirizine (ZYRTEC) 10 MG tablet Active acetaminophen 500 MG tablet Take 1 tablet (500 mg total) by mouth every 6 (six) hours as needed. Active albuterol sulfate HFA (PROAIR HFA) 108 (90 Base) MCG/ACT inhalerIndication s:Mild persistent asthma without complication (HHS/HCC) Inhale 2 puffs into the lungs every 6 (six) hours as needed for Wheezing. 18 g 2 2 Active buPROPion XL (WELLBUTRIN XL) 150 MG 24 hr tabletIndications :ADHD (attention deficit hyperactivity disorder), combined type,Mild episode of recurrent major depressive disorder,Anxiety TAKE 2 TABLETS BY MOUTH DAILY NEEDED 180 tablet 3 Active fluticasone propionate (FLONASE) 50 MCG/ACT nasal sprayIndications: Acute non-recurrent maxillary sinusitis SHAKE LIQUID AND USE 1 SPRAY IN EACH NOSTRIL DAILY 48 g 3 Active fluticasone (FLOVENT HFA) 110 MCG/ACT inhalerIndication s:Mild persistent asthma without complication (HHS/HCC) Inhale 2 puffs into the lungs daily. 36 g 1 4 Active valACYclovir (VALTREX) 500 MG tabletIndications :Fever blister Take 1 tablet (500 mg total) by mouth daily. 14 tablet 4 Active eszopiclone (LUNESTA) 2 MG tabletIndications :Primary insomnia Take 1 tablet (2 mg total) by mouth nightly at bedtime. Take immediately before bedtime 30 tablet 2 4 Active zolpidem (AMBIEN) 10 MG tabletIndications :Primary insomnia Take 1 tablet (10 mg total) by mouth nightly as needed for Sleep. 30 tablet 2 4 Active amphetamine-dextr oamphetamine XR (ADDERALL XR) 25 MG 24 hr capsuleIndication s:ADHD (attention deficit hyperactivity disorder), combined type Take 1 capsule (25 mg total) by mouth every morning. 30 capsule 4 Active PARoxetine (PAXIL) 30 MG tabletIndications :Mild episode of recurrent major depressive disorder Take 2 tablets (60mg) by mouth daily 180 tablet 4 Active amphetamine-dextr oamphetamine (ADDERALL) 5 MG tabletIndications :ADHD (attention deficit hyperactivity disorder), combined type Take 1 tablet (5 mg total) by mouth daily as needed. 30 tablet 4 Active Active Problems Problem Noted Date Diagnosed Date Conjunctivitis 11/12/2023 Upper respiratory infection 11/12/2023 Status post hysterectomy 10/09/2021 Mild episode of recurrent major depressive disor heladio 12/16/2020 Anxiety 12/16/2020 Primary insomnia 12/16/2020 ADHD (attention deficit hype ractivity disorder), combined type 06/06/2020 Mild persistent asthma without complication ([facility]) 06/06/2020 BMI 20.0-20.9, adult 06/06/2020 Displacement of ventricular intracranial shunt 0 08/12/2018 Hydrocephalus ([facility]) 07/29/2018 Malignant melanoma of skin ([facility]) 10/2014 Resolved Problems Problem Noted Date Diagnosed Date Resolved Date Depression with anxiety 06/06/2020/2 03/2021 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, 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 12/29/2023 Immunizations Immunization Administration Dates Next Due Fluzone 6 Months+ Quad (0.5 mL Prefilled Syringe) 12/16/2020 Influenza (Generic) 09/10/2022,,10/04/2018,2013 Pneumococcal (Prevnar 20) 01/22/2023 Tdap (Historical Only-select from magnify glass) 12/16/2020 Family History Medical History Relation Comments Anxiety Brother 1 Depression Brother 1 Anxiety Brother 2 Depression Brother 2 No Known Problems Daughter Anxiety Father Depression Father Hypertension Father Obesity Father blind Father No Known Problems Maternal Grandfather No Known Problems Maternal Grandmother Anxiety Mother Hypertension Mother No Known Problems Paternal Grandfather No Known Problems Paternal Grandmother Anxiety Sister Depression Sister Asthma Son adhd Son Relation Status Comments Brother 1 Alive Brother 2 Alive Daughter Alive Father Alive Maternal Grandfather Maternal Grandmother Mother Alive Paternal Grandfather Paternal Grandmother Sister Alive Son Alive Social History Tobacco Use Types Packs/Day Years Used Date Smoking Tobacco: Former Cigarettes 0.3 12 0 06/06/1989 - 06/06/2001 Smokeless Tobacco: Never Tobacco Cessation:Counseling Given: Not Answered Alcohol Use Standard Drinks/Week Comments Yes 10 (1 standard drink = 0.6 oz pu re alcohol) AUDIT-C Answer Date Recorded Q1: How often do you have a drink containing alc ohol? 2-4 times a month 06/06/2020 Q2: How many drinks containi ng alcohol do you have on a typical day when you are drinking? 3 or 4 06/06/2020 Q3: How often do you have si x or more drinks on one occasion? Never 06/06/2020 PHQ-2 Answer Date Recorded Patient Health Questionnaire-2 Score 0 12/29/2023 Comments No Sex and Gender Information Value Date Recorded Sex Assigned at Not on file Legal Sex Female 12:12 PM CDT Gender Identity Not on file Sexual Orientation Not on file Occupation Industry Job Start Date Job End Date Not on file Not on file Not on file Not on file Last Filed Vital Signs Vital Sign Reading Time Taken Comments Blood Pressure 110/74 12/29/2023 2:06 PM INORGANIC CHEMIST Pulse 74 12/29/2023 2:06 PM INORGANIC CHEMIST Temperature 36.9 C (98.4 F) 12/29/2023 2:06 PM INORGANIC CHEMIST Respiratory Rate 16 12/29/2023 2:06 PM INORGANIC CHEMIST Oxygen Saturation 98% 12/29/2023 2:06 PM INORGANIC CHEMIST Inhaled Oxygen Concentration - - Weight 57.2 kg (126 lb) 03/27/2024 2:27 PM CDT Height 170.2 cm (5' 7 ) 03/27/2024 2:27 PM CDT Body Mass Index 19.73 03/27/2024 2:27 PM CDT Plan of Treatment Health Maintenance Due Date Last Done Comments Cervical Cancer Screening Pap Smear (Age 30 to 64) Every 3 Years 1974 Annual Physical 1977 Hepatitis B Vaccines (1 of 3 - 19+ 3-dose series) 1993 Zoster Vaccines (1 of 2) 2024 COVID-19 Vaccine (2023- season) 2024 07/01/2021, 06/05/2021 Cervical Cancer Screening Pap with HPV Testing (Age 30 to 64) Every 5 Years 09/15/2024 09/15/2019, 09/13/2019, 11/24/2017, Additional history exists Cervical Cancer Screening with HPV 09/15/2024 Mammogram Screening 09/22/2024 09/22/2022, 07/25/2021, 08/22/2019 PHQ-2 (Physician [place]) 11/22/2024 12/29/2023 DTaP, Tdap and Td Vaccines (2 - Td or Tdap) 12/16/2030 12/16/2020 Colorectal Cancer Screening Colonoscopy (10 Years) 10/26/2032 10/26/2022 Hepatitis C Completed 11/27/2021 Pneumococcal Vaccine: 50+ Years Completed 01/22/2023 Meningococcal B Vaccine Aged Out No l onger eligible based on patient's age to complete this topic Meningococcal Vaccine Aged Out No ramila chicho eligible based on patient's age to complete this topic RSV Immunizations Under 20 Months Aged Out No longer eligible based on patient's age to complete this topic Procedures Procedure Name Priority Date/Time Associated Diagnosis Comments COLONOSCOPY GENERIC (SCAN ORDER) 10/26/2022 MAMMOGRAM GENERIC (SCAN ORDER) 09/22/2022 HEPATITIS C ANTIBODY 11/27/2021 9:41 AM INORGANIC CHEMIST OUTSIDE CYTOPATH CERV/VAG INTERPRET (PAP) 09/15/2019 from Last 3 Months or Most Recently Relevant to Health Maintenance Results * COLONOSCOPY GENERIC (SCAN ORDER) (10/26/2022) 10/26/2022 [facility] Scanned SCANNING Final Resu lt * MAMMOGRAM GENERIC (09/22/2022) Anatomical Region Laterality Modality Other 09/22/2022 [facility] Scanned SCANNING Final Resu lt * HEPATITIS C ANTIBODY (11/27/2021 9:41 AM INORGANIC CHEMIST) HEPATITIS C AB 0.2 0.0 - 0.9 s/co ratio [facility] 1 Comment: Negative: < 0.8 Indeterminate: 0.8 - 0.9 Positive: > 0.9 The CDC recommends that a positive HCV antibody result be followed up with a HCV Nucleic Acid Amplification test (224222). 11/27/2021 9:41 AM INORGANIC CHEMIST 11/27/2021 Narrative [facility] - 11/28/2021 8:13 AM INORGANIC CHEMIST Performed at: 01 - [facility] [address] [id number] Mailing Jogger: Michael Suero PhD, Phone: [phone] us Milo Sullivan DO LABORATORY Final Re sult [facility] [address] [place] [address] [facility] 1 * OUTSIDE CYTOPATH VAG/CERV PAP WITH HPV (09/15/2019) 09/15/2019 Narrative 09/15/2019 Ordered by an unspecified provider. us Documents Scanned SCANNING Final Result from Last 3 Months or Most Recently Relevant to Health Maintenance Insurance
--- OUTSIDE RECORDS SUMMARY | 2025-03-24 18:54 | XMS_ITS | Encounter Summary ---
Author Organization [facility] Address [address] [place] [address] Care Team Providers Care Plant Nursery Worker Name Role Phone Unavailable Primary Care Provider Unavailabl e Encounter Details Date Type Department Care Team (Late st Contact Info) Description 11/28/2021 directworx Message [facility] Family & Internal Medicine [address] [address] [place], [facility] Provider results Social History Tobacco Use Types Packs/Day Years Used Date Smoking Tobacco: Former Cigarettes 0.3 12 0 06/06/1989 - 06/06/2001 Smokeless Tobacco: Never Alcohol Use Standard Drinks/Week Comments Yes 10 [...] occasion? Never 06/06/2020 PHQ-2 Answer Date Recorded PHQ-2 Score - If the patient scores above 3, please move on to questions 3-9 0 11/27/2021 Comments No Sex and Gender Information Value Date Recorded Sex Assigned at Not on file Legal Sex Female 12:12 PM CDT Gender Identity Not on file Sexual Orientation Not on file Occupation Industry Job Start Date Job End Date Not on file Not on file Not on file Not on file COVID-19 Exposure Response Date Recorded In the last month, have you been in contact with someone who was confirmed or suspected to have Coronavirus / COVID-19? No / Unsure 11/27/2021 8:56 AM POSITION CLASSIFIER documented as of this encounter Plan of Treatment Not on file documented as of this encounter Visit Diagnoses Not on filedocumented in this encounter Additional Health Concerns Assessment Noted Time PHQ-9 Depression Total Score: 0 11/27/19 22 9:32 AM POSITION CLASSIFIER documented as of this encounter
--- OUTSIDE RECORDS SUMMARY | 2025-03-24 18:54 | XMS_ITS | Referral Summary ---
Author Organization [facility] Address [address] [place] [address] Phone Care Team Providers Care Comp Field Case Manager Name Role Phone Rick Potts MD Unavailable [phone] Baldev Burdick BONDING MACHINE TENDER Primary Care Provider [phone] Encounters Date Type Department Care Team Description 01/10/2025 3:30 PM PLATE COLORER - 01/10/2025 11:59 PM PLATE COLORER Hospital Encounter [facility] [address] [place] [address] Screening mammogram, encounter for Discharge Disposition: Discharge to home or self care from Last 3 Months Allergies Active Allergy Reactions Criticality Noted Date [...] Date Idiopathic normal pressure hydrocephalus 07/29/2018 07/29/2018 Immunizations Immunization Administration Dates Next Due Influenza, Quadrivalent, Spl it, Preservative Free, Intramuscular 12/16/2020 Influenza, Trivalent, IM (MDV) 01/03/2014 Influenza, Unspecified 09/10/2022,2021,10/04/2018,01/03 Pneumococcal Conjugate Pcv20 01/22/2023 Tdap 12/16/2020 Social History Tobacco Use Types Packs/Day Years [...] on file Legal Sex Female 2:07 AM PLATE COLORER Gender Identity Not on file Sexual Orientation Not on file Last Filed Vital Signs Vital Sign Reading Time Taken Comments Blood Pressure 110/65 12/08/2024 1:50 AM PLATE COLORER Pulse 65 12/08/2024 1:50 AM PLATE COLORER Temperature 36.9 C (98.5 F) 12/07/2024 9:46 PM PLATE COLORER Respiratory Rate 18 12/08/2024 1:50 AM PLATE COLORER Oxygen Saturation 96% 12/08/2024 1:50 AM PLATE COLORER Inhaled Oxygen Concentration - - Weight 60.1 kg (132 lb 7.9 oz) 12/07/2024 9:46 P M PLATE COLORER Height 170.2 cm (5' 7 ) 12/07/2024 9:46 PM PLATE COLORER Body Mass Index 20.75 12/07/2024 9:46 PM PLATE COLORER Plan of Treatment Not on file Medical Devices Implanted Type Area Retail Financial Analyst Device Identifier Shelf Expiration Date Model / Serial / Lot [employer] [id number] Bactiseal 14cm Csf Ventricular Catheter External Drainage Sterile - S0 - [id number] Implanted:Qty: 1 on 08/02/2018 by Lenard Lopez Jr., MD at [facility] Shunt [employer] [id number] 11/21/2018 [id number] / 0 / [id number] Procedures Procedure Name Priority Date/Time Associated Diagnosis Comments SCREENING MAMMOGRAM BILATERAL W TIMOTEO W IMPLANTS Schedule Routine, Read Routine (OP Routine) 01/10/2025 4:00 PM PLATE COLORER Screening mammogram, encounter for GENITAL FLUID PAP SMEAR, THIN PREP AND HPV Routine 06/30/2016 12:00 AM CDT from Last 3 Months or Most Recently Relevant to Health Maintenance Results * Screening Mammogram Bilateral W Timoteo W Implants (01/10/2025 4:00 PM PLATE COLORER) Anatomical Region Laterality Modality Breast Bilateral Mammography Narrative 01/11/2025 6:30 AM PLATE COLORER Examination: Screening Mammogram Bilateral W Timoteo W [...] Most Recently Relevant to Health Maintenance Insurance [facility] [employer] [facility] [employer] [facility] ACCESS CHOICE Advance Directives For more information, please contact: [phone] * Full Code (Latest Code Status on File) Date Activated Date Inactivated Comments 08/01/2018 11:05 PM 08/03/2018 4:45 PM Care Teams Comp Field Case Manager Relationship Specialty Start Date End Date Baldev Burdick NP [address] [place] [address] PCP - General Nurse Practitioner 12/08/24 Rick Potts MD [address] [facility] [address] [place] [address] Consulting Physician Endocrinology Diabetes & Metabolism 11/18/21
--- OUTSIDE RECORDS SUMMARY | 2025-03-24 18:55 | XMS_ITS | Patient Health Record ---
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 Name Role Phone Nate LONGORIA Milo Primary Care Provider Baldev Cohen Unavailable [phone] David Charles Unavailable [phone] Dinesh Chaudhari Unavailable [phone] Allergies Allergen (clinical drug ingredient) Drug/Non Drug Allergy documented on EMR Reaction Allergy Type Onset Date Status vortioxetine Trintellix rash Drug Allergy Act enriqueta Reason For Referral No Information Medications Medication SIG (Take, Route, Frequency, Duration) Notes Start Date End Date Status Lisdexamfetamine Dimesylate 50 MG 1 capsule in the morning Orally Once a day for 30 days 02/21/2025 Active PARoxetine HCl 30 MG TAKE 2 TABLETS BY MOUTH DAILY for 90 Active Valtrex 500 MG 1 tablet Orally Once a day for 90 days As needed Active Xanax 1 MG 1 tablet Orally Twice a day Not-Taking buPROPion HCl ER (XL) 300 MG TAKE 1 TABLET BY MOUTH EVERY MORNING for 90 Active Amphetamine-Dextroamphetam ine 5 MG Oral for 30 Days Not-Taking buPROPion HCl ER (XL) 300 MG 1 tablet every morning Orally Once a day for 90 days Active Albuterol Active Zolpidem Tartrate 10 MG 1 tablet at bedtime Oral once a day for 30 days As needed 03/09/2025 05/08/2025 Active Flovent Diskus Activ e Zolpidem Tartrate 10 MG 1 tablet at bedt larry Oral once a day for 30 days 12/15/2024 Active Fluticasone Propionate HFA 110 MCG/ACT INHALE 2 PUFFS INTO THE LUNGS DAILY Inhalation for 90 Days 04/01/2025 Active Zolpidem Tartrate 10 MG 1 tablet at bedtime Oral once a day for 30 days As needed 02/21/2025 Active Social History Tobacco Use: Social History Observation Description Date Details (start date - stop date) Former Smoker NA - NA Sex Assigned At : Social History Observation Description Sex Assigned At Female Tobacco Control (Standard) Question Answer Notes Tobacco use: Former smoker When did you start smoking? 1991 AUDIT-C (Standard) Question Answer Notes Interpretation Positive Did you have a drink contain ing alcohol in the past year? Yes How often did you have six o r more drinks on one occasion in the past year? Less than monthly (1 point) How many drinks did you have on a typical day when you were drinking in the past year? 3 or 4 drinks (1 point) How often did you have a dri nk containing alcohol in the past year? 2 to 4 times a month (2 points) Problems Problem Type SNOMED Code ICD Code Onset Dates Problem Status W/U Status Risk Notes Problem 20448074 Insomnia due to other mental disorder (F51.05) Active confirmed Problem 99549901 ADHD (attention deficit hyperactivity disorder), combined type (F90.2) Active confirmed Problem 979018048 MDD (major depressive disorder), recurrent episode, mild (F33.0) Active confirmed Problem 44037368 Anxiety, generalized (F41.1) Active confirmed Vital Signs Heart Rate 76 /min 02/05/2025 Blood pressure diastolic 79 mm Hg 02/05/2025 Weight-kg 61.24 kg 02/05/2025 Blood pressure systolic 119 mm Hg 02/05/2025 Weight 135 lbs 02/05/2025 Procedures Procedure Date Ordered Date Performed Result Body Sit e ADHD Testing 09/05/2024 N/A ADHD Testing 09/12/2024 N/A Encounters Encounter Location Date Provider Diagnosis [facility] [address] [address] 09/05/2024 Dinesh Dayton MDD (major depressiv e disorder), recurrent episode, mild F33.0 and ADHD (attention deficit hyperactivity disorder) evaluation Z13.39 [facility] [address] [facility] [address] [place] [address] 09/12/2024 David Charles ADHD (attention defi cit hyperactivity disorder) evaluation Z13.39 [place] [id number] [facility] [address] [address] 09/19/2024 Baldev Mijaresa MDD (major depressiv e disorder), recurrent episode, mild F33.0 ; Anxiety, generalized F41.1 ; Hydrocephalus, unspecified type G91.9 ; S/P ventriculoperitoneal shunt Z98.2 ; Insomnia due to other mental disorder F51.05 ; Herpes simplex B00.9 and ADHD (attention deficit hyperactivity disorder), combined type F90.[address] [address] 11/01/2024 Baldev Burdick [address] [address] 11/02/2024 Baldev Burdick MDD (major depressiv e disorder), recurrent episode, mild F33.0 ; Anxiety, generalized F41.1 ; Hydrocephalus, unspecified type G91.9 ; S/P ventriculoperitoneal shunt Z98.2 ; Insomnia due to other mental disorder F51.05 ; Herpes simplex B00.9 and ADHD (attention deficit hyperactivity disorder), combined type F90.[address] [address] 02/05/2025 Baldev Salazaroza Anxiety, generalized F41.1 ; Insomnia due to other mental disorder F51.05 ; Encounter for screening for depression Z13.31 ; MDD (major depressive disorder), recurrent episode, mild F33.0 ; Encounter for screening for cardiovascular disorders Z13.6 ; Hydrocephalus, unspecified type G91.9 ; S/P ventriculoperitoneal shunt Z98.2 ; Herpes simplex B00.9 and ADHD (attention deficit hyperactivity disorder), combined type F90.2 [place] [id number] [facility] [address] [address] 10/26/2024 Baldev Burdick [place] [id number] [facility] [address] [address] 02/20/2025 Baldev Burdick Insomnia due to othe r mental disorder F51.05 and ADHD (attention deficit hyperactivity disorder), combined type F90.2 [facility] [address] [place] [address] [facility] [address] [place] [address] 11/08/2024 [facility] [address] [place] [address] 11/28/2024 Baldevlarry Salazaroza ADHD (attention defi cit hyperactivity disorder), combined type F90.2 [facility] [address] [place] [address] 12/29/2024 Baldev Burdick ADHD (attention defi cit hyperactivity disorder), combined type F90.2 and Herpes simplex B00.9 [facility] [address] [place] [address] 02/13/2025 Baldev Burdick MDD (major depressiv e disorder), recurrent episode, mild F33.0 ; Insomnia due to other mental disorder F51.05 and ADHD (attention deficit hyperactivity disorder), combined type F90.2 [facility] [address] [place] [address] 02/14/2025 [facility] [address] [place] [address] 02/14/2025 [facility] [address] [place] [address] 02/18[facility] [address] [place] [address] 02/19/2025 [facility] [address] [place] [address] 02/20/2025 Baldev Burdick Insomnia due to othe r mental disorder F51.05 and ADHD (attention deficit hyperactivity disorder), combined type F90.2 Assessments Encounter Date Diagnosis (ICD Code) Assessment Notes Treatment Notes Treatment Clinical Notes Section Notes 09/05/2024 MDD (major depressive disorder), recurrent episode, mild (ICD-10 - F33.0) 1. Anxiety and Depression - Patient reports a history of anxiety and depression, currently experiencing situational depression due to a recent breakup. - Patient is on bupropion 300mg and paroxetine 60 mg daily. - pt denied SI - Patient rates current anxiety as 6-7/10 and depression as 2-3/10. - Patient has tried other antidepressants in the past (Zoloft, Prozac, Trintellix) but experienced side effects. Plan: a. continue bupropion and paroxetine prescriptions. b. Encourage self-care including diet, exercise, and support system. c. Monitor progress in follow-up appointments. 2. Insomnia - Patient reports difficulty sleeping, previously taking Ambien 10 mg as needed. - Currently using sleep edibles and old Xanax with limited success. - Patient reports insomnia since depression in 2002. Plan: a. discuss insomnia with PMHNP at next visit b. Encourage good sleep hygiene and consider non-pharmacolog ical interventions for sleep. c. discourage the use of medications, as this is a safety risk. 3. ADHD - Patient has a history of taking Adderall XR 20 mg in the morning for ADHD, but has been off medication for five weeks. - Patient prefers immediate-relea se Adderall 20 mg in the morning only. Plan: a. Schedule an ADHD test for the patient to complete in the office. b. Refer to a mental health specialist for further evaluation and potential prescription of controlled substances, as they cannot be prescribed in the current setting.. 09/12/2024 ADHD (attention deficit hyperactivity disorder) evaluation (ICD-10 - Z13.39) 09/19/2024 MDD (major depressive disorder), recurrent episode, mild (ICD-10 - F33.0) cont Paxil Plasma concentrations and pharmacologic effects of Adderall XR Oral Capsule Extended Release 24 Hour 20 MG may be increased by strong CYP2D6 inhibitors (eg, buPROPion HCl ER (XL) Oral Tablet Extended Release 24 Hour 150 MG). 1. Major Depressive Disorder and Generalized Anxiety Disorder: - Patient is currently stable on Paxil 60 mg daily and Wellbutrin 300 mg daily. Plan: - Continue current medications and monitor for any changes in mood or anxiety levels. 2. Premenstrual Dysphoric Disorder (PMDD): - Patient has had a hysterectomy but still experiences symptoms around day 14 of her cycle. - Patient has started taking DIM for estrogen dominance and reports improvement. Plan: - Encourage continued exercise and diet management to help alleviate symptoms. 3. Attention Deficit Hyperactivity Disorder (ADHD): - Patient has a history of ADHD. Plan: - Start Adderall XR 25 mg every morning. - Patient is interested in immediate release adderall, discussed immediate release formulations are not advised, long acting stimulants are recommended and will provide sustained symptom coverage. - Monitor for side effects and consider alternatives like Vyvanse or methylphenidate products if needed. 4. Insomnia: - Patient is currently using zolpidem (Ambien) 10 mg as needed for sleep, usually taking 5 mg and sometimes the other 5 mg later. Plan: - Continue current medication and monitor for any changes in sleep patterns or side effects. 5. Herpes Simplex: - Patient is currently on valacyclovir 500 mg daily for suppressive treatment. Plan: - Continue current medication and monitor for any outbreaks or side effects. 6. Hydrocephalus with shunt placement: - Patient has a history of idiopathic hydrocephalus and has had two shunt revisions. - No current issues reported. Plan: - Monitor for any changes in symptoms or complications related to the shunt. Follow-up: - Plan to follow up in one month to assess the effectiveness of the new ADHD medication and overall mental health status. - Patient will complete a drug screen today, and prescriptions will be sent once the drug screen is on file. 54 Minutes spent with patient discussing patient history, current symptoms, impact of symptoms on daily functioning and treatment plan. Pt agrees with treatment plan. 09/19/2024 Anxiety, generalized (ICD-10 - F41.1) stable 1. Major Depressive Disorder and Generalized Anxiety Disorder: - Patient is currently stable on Paxil 60 mg daily and Wellbutrin 300 mg daily. Plan: - Continue current medications and monitor for any changes in mood or anxiety levels. 2. Premenstrual Dysphoric Disorder (PMDD): - Patient has had a hysterectomy but still experiences symptoms around day 14 of her cycle. - Patient has started taking DIM for estrogen dominance and reports improvement. Plan: - Encourage continued exercise and diet management to help alleviate symptoms. 3. Attention Deficit Hyperactivity Disorder (ADHD): - Patient has a history of ADHD. Plan: - Start Adderall XR 25 mg every morning. - Patient is interested in immediate release adderall, discussed immediate release formulations are not advised, long acting stimulants are recommended and will provide sustained symptom coverage. - Monitor for side effects and consider alternatives like Vyvanse or methylphenidate products if needed. 4. Insomnia: - Patient is currently using zolpidem (Ambien) 10 mg as needed for sleep, usually taking 5 mg and sometimes the other 5 mg later. Plan: - Continue current medication and monitor for any changes in sleep patterns or side effects. 5. Herpes Simplex: - Patient is currently on valacyclovir 500 mg daily for suppressive treatment. Plan: - Continue current medication and monitor for any outbreaks or side effects. 6. Hydrocephalus with shunt placement: - Patient has a history of idiopathic hydrocephalus and has had two shunt revisions. - No current issues reported. Plan: - Monitor for any changes in symptoms or complications related to the shunt. Follow-up: - Plan to follow up in one month to assess the effectiveness of the new ADHD medication and overall mental health status. - Patient will complete a drug screen today, and prescriptions will be sent once the drug screen is on file. 54 Minutes spent with patient discussing patient history, current symptoms, impact of symptoms on daily functioning and treatment plan. Pt agrees with treatment plan. 11/02/2024 MDD (major depressive disorder), recurrent episode, mild (ICD-10 - F33.0) cont Paxil Plasma concentrations and pharmacologic effects of Adderall XR Oral Capsule Extended Release 24 Hour 20 MG may be increased by strong CYP2D6 inhibitors (eg, buPROPion HCl ER (XL) Oral Tablet Extended Release 24 Hour 150 MG). 1.anxiety: - Patient reports no current depression or anxiety symptoms. - Has high-functionin g anxiety and has recently ended a relationship, which has improved her mental health. Plan: Continue to monitor and provide support as needed. 2. Attention Deficit Hyperactivity Disorder (ADHD): - Medication: Adderall 25 mg Plan: - Refill prescription for Adderall 25 mg. - Instruct the patient to call the office or use the [employer] [facility] for future refills. - Continue to monitor the effectiveness of the medication and any potential side effects. 3. Follow-up: Plan: - Schedule a follow-up appointment in 3 months to assess the patient's overall health and any changes in her condition. - Provide information on the patient portal for easy access to medical records and appointment scheduling. 11/28/2024 ADHD (attention deficit hyperactivity disorder), combined type (ICD-10 - F90.2) 12/29/2024 ADHD (attention deficit hyperactivity disorder), combined type (ICD-10 - F90.2) 02/05/2025 Anxiety, generalized (ICD-10 - F41.1) stable 02/13/2025 MDD (major depressive disorder), recurrent episode, mild (ICD-10 - F33.0) 02/20/2025 Insomnia due to other mental disorder (ICD-10 - F51.05) 02/20/2025 Insomnia due to other mental disorder (ICD-10 - F51.05) 02/20/2025 ADHD (attention deficit hyperactivity disorder), combined type (ICD-10 - F90.2) 02/20/2025 ADHD (attention deficit hyperactivity disorder), combined type (ICD-10 - F90.2) 02/13/2025 Insomnia due to other mental disorder (ICD-10 - F51.05) 12/29/2024 Herpes simplex (ICD-10 - B00.9) 02/05/2025 Insomnia due to other mental disorder (ICD-10 - F51.05) 11/02/2024 Anxiety, generalized (ICD-10 - F41.1) stable 1.anxiety: - Patient reports no current depression or anxiety symptoms. - Has high-functionin g anxiety and has recently ended a relationship, which has improved her mental health. Plan: Continue to monitor and provide support as needed. 2. Attention Deficit Hyperactivity Disorder (ADHD): - Medication: Adderall 25 mg Plan: - Refill prescription for Adderall 25 mg. - Instruct the patient to call the office or use the [employer] [facility] for future refills. - Continue to monitor the effectiveness of the medication and any potential side effects. 3. Follow-up: Plan: - Schedule a follow-up appointment in 3 months to assess the patient's overall health and any changes in her condition. - Provide information on the patient portal for easy access to medical records and appointment scheduling. 09/19/2024 Hydrocephalus, unspecified type (ICD-10 - G91.9) 1. Major Depressive Disorder and Generalized Anxiety Disorder: - Patient is currently stable on Paxil 60 mg daily and Wellbutrin 300 mg daily. Plan: - Continue current medications and monitor for any changes in mood or anxiety levels. 2. Premenstrual Dysphoric Disorder (PMDD): - Patient has had a hysterectomy but still experiences symptoms around day 14 of her cycle. - Patient has started taking DIM for estrogen dominance and reports improvement. Plan: - Encourage continued exercise and diet management to help alleviate symptoms. 3. Attention Deficit Hyperactivity Disorder (ADHD): - Patient has a history of ADHD. Plan: - Start Adderall XR 25 mg every morning. - Patient is interested in immediate release adderall, discussed immediate release formulations are not advised, long acting stimulants are recommended and will provide sustained symptom coverage. - Monitor for side effects and consider alternatives like Vyvanse or methylphenidate products if needed. 4. Insomnia: - Patient is currently using zolpidem (Ambien) 10 mg as needed for sleep, usually taking 5 mg and sometimes the other 5 mg later. Plan: - Continue current medication and monitor for any changes in sleep patterns or side effects. 5. Herpes Simplex: - Patient is currently on valacyclovir 500 mg daily for suppressive treatment. Plan: - Continue current medication and monitor for any outbreaks or side effects. 6. Hydrocephalus with shunt placement: - Patient has a history of idiopathic hydrocephalus and has had two shunt revisions. - No current issues reported. Plan: - Monitor for any changes in symptoms or complications related to the shunt. Follow-up: - Plan to follow up in one month to assess the effectiveness of the new ADHD medication and overall mental health status. - Patient will complete a drug screen today, and prescriptions will be sent once the drug screen is on file. 54 Minutes spent with patient discussing patient history, current symptoms, impact of symptoms on daily functioning and treatment plan. Pt agrees with treatment plan. 09/05/2024 ADHD (attention deficit hyperactivity disorder) evaluation (ICD-10 - Z13.39) 1. Anxiety and Depression - Patient reports a history of anxiety and depression, currently experiencing situational depression due to a recent breakup. - Patient is on bupropion 300mg and paroxetine 60 mg daily. - pt denied SI - Patient rates current anxiety as 6-7/10 and depression as 2-3/10. - Patient has tried other antidepressants in the past (Zoloft, Prozac, Trintellix) but experienced side effects. Plan: a. continue bupropion and paroxetine prescriptions. b. Encourage self-care including diet, exercise, and support system. c. Monitor progress in follow-up appointments. 2. Insomnia - Patient reports difficulty sleeping, previously taking Ambien 10 mg as needed. - Currently using sleep edibles and old Xanax with limited success. - Patient reports insomnia since depression in 2002. Plan: a. discuss insomnia with PMHNP at next visit b. Encourage good sleep hygiene and consider non-pharmacolog ical interventions for sleep. c. discourage the use of medications, as this is a safety risk. 3. ADHD - Patient has a history of taking Adderall XR 20 mg in the morning for ADHD, but has been off medication for five weeks. - Patient prefers immediate-relea se Adderall 20 mg in the morning only. Plan: a. Schedule an ADHD test for the patient to complete in the office. b. Refer to a mental health specialist for further evaluation and potential prescription of controlled substances, as they cannot be prescribed in the current setting.. 09/19/2024 S/P ventriculoperiton eal shunt (ICD-10 - Z98.2) 1. Major Depressive Disorder and Generalized Anxiety Disorder: - Patient is currently stable on Paxil 60 mg daily and Wellbutrin 300 mg daily. Plan: - Continue current medications and monitor for any changes in mood or anxiety levels. 2. Premenstrual Dysphoric Disorder (PMDD): - Patient has had a hysterectomy but still experiences symptoms around day 14 of her cycle. - Patient has started taking DIM for estrogen dominance and reports improvement. Plan: - Encourage continued exercise and diet management to help alleviate symptoms. 3. Attention Deficit Hyperactivity Disorder (ADHD): - Patient has a history of ADHD. Plan: - Start Adderall XR 25 mg every morning. - Patient is interested in immediate release adderall, discussed immediate release formulations are not advised, long acting stimulants are recommended and will provide sustained symptom coverage. - Monitor for side effects and consider alternatives like Vyvanse or methylphenidate products if needed. 4. Insomnia: - Patient is currently using zolpidem (Ambien) 10 mg as needed for sleep, usually taking 5 mg and sometimes the other 5 mg later. Plan: - Continue current medication and monitor for any changes in sleep patterns or side effects. 5. Herpes Simplex: - Patient is currently on valacyclovir 500 mg daily for suppressive treatment. Plan: - Continue current medication and monitor for any outbreaks or side effects. 6. Hydrocephalus with shunt placement: - Patient has a history of idiopathic hydrocephalus and has had two shunt revisions. - No current issues reported. Plan: - Monitor for any changes in symptoms or complications related to the shunt. Follow-up: - Plan to follow up in one month to assess the effectiveness of the new ADHD medication and overall mental health status. - Patient will complete a drug screen today, and prescriptions will be sent once the drug screen is on file. 54 Minutes spent with patient discussing patient history, current symptoms, impact of symptoms on daily functioning and treatment plan. Pt agrees with treatment plan. 11/02/2024 Hydrocephalus, unspecified type (ICD-10 - G91.9) 1.anxiety: - Patient reports no current depression or anxiety symptoms. - Has high-functionin g anxiety and has recently ended a relationship, which has improved her mental health. Plan: Continue to monitor and provide support as needed. 2. Attention Deficit Hyperactivity Disorder (ADHD): - Medication: Adderall 25 mg Plan: - Refill prescription for Adderall 25 mg. - Instruct the patient to call the office or use the [employer] [facility] for future refills. - Continue to monitor the effectiveness of the medication and any potential side effects. 3. Follow-up: Plan: - Schedule a follow-up appointment in 3 months to assess the patient's overall health and any changes in her condition. - Provide information on the patient portal for easy access to medical records and appointment scheduling. 02/13/2025 ADHD (attention deficit hyperactivity disorder), combined type (ICD-10 - F90.2) 02/05/2025 Encounter for screening for depression (ICD-10 - Z13.31) 02/05/2025 MDD (major depressive disorder), recurrent episode, mild (ICD-10 - F33.0) cont Paxil Plasma concentrations and pharmacologic effects of Adderall XR Oral Capsule Extended Release 24 Hour 20 MG may be increased by strong CYP2D6 inhibitors (eg, buPROPion HCl ER (XL) Oral Tablet Extended Release 24 Hour 150 MG). 11/02/2024 S/P ventriculoperiton eal shunt (ICD-10 - Z98.2) 1.anxiety: - Patient reports no current depression or anxiety symptoms. - Has high-functionin g anxiety and has recently ended a relationship, which has improved her mental health. Plan: Continue to monitor and provide support as needed. 2. Attention Deficit Hyperactivity Disorder (ADHD): - Medication: Adderall 25 mg Plan: - Refill prescription for Adderall 25 mg. - Instruct the patient to call the office or use the [employer] [facility] for future refills. - Continue to monitor the effectiveness of the medication and any potential side effects. 3. Follow-up: Plan: - Schedule a follow-up appointment in 3 months to assess the patient's overall health and any changes in her condition. - Provide information on the patient portal for easy access to medical records and appointment scheduling. 02/05/2025 Encounter for screening for cardiovascular disorders (ICD-10 - Z13.6) 09/19/2024 Insomnia due to other mental disorder (ICD-10 - F51.05) 1. Major Depressive Disorder and Generalized Anxiety Disorder: - Patient is currently stable on Paxil 60 mg daily and Wellbutrin 300 mg daily. Plan: - Continue current medications and monitor for any changes in mood or anxiety levels. 2. Premenstrual Dysphoric Disorder (PMDD): - Patient has had a hysterectomy but still experiences symptoms around day 14 of her cycle. - Patient has started taking DIM for estrogen dominance and reports improvement. Plan: - Encourage continued exercise and diet management to help alleviate symptoms. 3. Attention Deficit Hyperactivity Disorder (ADHD): - Patient has a history of ADHD. Plan: - Start Adderall XR 25 mg every morning. - Patient is interested in immediate release adderall, discussed immediate release formulations are not advised, long acting stimulants are recommended and will provide sustained symptom coverage. - Monitor for side effects and consider alternatives like Vyvanse or methylphenidate products if needed. 4. Insomnia: - Patient is currently using zolpidem (Ambien) 10 mg as needed for sleep, usually taking 5 mg and sometimes the other 5 mg later. Plan: - Continue current medication and monitor for any changes in sleep patterns or side effects. 5. Herpes Simplex: - Patient is currently on valacyclovir 500 mg daily for suppressive treatment. Plan: - Continue current medication and monitor for any outbreaks or side effects. 6. Hydrocephalus with shunt placement: - Patient has a history of idiopathic hydrocephalus and has had two shunt revisions. - No current issues reported. Plan: - Monitor for any changes in symptoms or complications related to the shunt. Follow-up: - Plan to follow up in one month to assess the effectiveness of the new ADHD medication and overall mental health status. - Patient will complete a drug screen today, and prescriptions will be sent once the drug screen is on file. 54 Minutes spent with patient discussing patient history, current symptoms, impact of symptoms on daily functioning and treatment plan. Pt agrees with treatment plan. 09/19/2024 Herpes simplex (ICD-10 - B00.9) 1. Major Depressive Disorder and Generalized Anxiety Disorder: - Patient is currently stable on Paxil 60 mg daily and Wellbutrin 300 mg daily. Plan: - Continue current medications and monitor for any changes in mood or anxiety levels. 2. Premenstrual Dysphoric Disorder (PMDD): - Patient has had a hysterectomy but still experiences symptoms around day 14 of her cycle. - Patient has started taking DIM for estrogen dominance and reports improvement. Plan: - Encourage continued exercise and diet management to help alleviate symptoms. 3. Attention Deficit Hyperactivity Disorder (ADHD): - Patient has a history of ADHD. Plan: - Start Adderall XR 25 mg every morning. - Patient is interested in immediate release adderall, discussed immediate release formulations are not advised, long acting stimulants are recommended and will provide sustained symptom coverage. - Monitor for side effects and consider alternatives like Vyvanse or methylphenidate products if needed. 4. Insomnia: - Patient is currently using zolpidem (Ambien) 10 mg as needed for sleep, usually taking 5 mg and sometimes the other 5 mg later. Plan: - Continue current medication and monitor for any changes in sleep patterns or side effects. 5. Herpes Simplex: - Patient is currently on valacyclovir 500 mg daily for suppressive treatment. Plan: - Continue current medication and monitor for any outbreaks or side effects. 6. Hydrocephalus with shunt placement: - Patient has a history of idiopathic hydrocephalus and has had two shunt revisions. - No current issues reported. Plan: - Monitor for any changes in symptoms or complications related to the shunt. Follow-up: - Plan to follow up in one month to assess the effectiveness of the new ADHD medication and overall mental health status. - Patient will complete a drug screen today, and prescriptions will be sent once the drug screen is on file. 54 Minutes spent with patient discussing patient history, current symptoms, impact of symptoms on daily functioning and treatment plan. Pt agrees with treatment plan. 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 - Has high-functionin g anxiety and has recently ended a relationship, which has improved her mental health. Plan: Continue to monitor and provide support as needed. 2. Attention Deficit Hyperactivity Disorder (ADHD): - Medication: Adderall 25 mg Plan: - Refill prescription for Adderall 25 mg. - Instruct the patient to call the office or use the [facility] for future refills. - Continue to monitor the effectiveness of the medication and any potential side effects. 3. Follow-up: Plan: - Schedule a follow-up appointment in 3 months to assess the patient's overall health and any changes in her condition. - Provide information on the patient portal for easy access to medical records and appointment scheduling. 02/05/2025 Hydrocephalus, unspecified type (ICD-10 - G91.9) 02/05/2025 S/P ventriculoperiton eal shunt (ICD-10 - Z98.2) 09/19/2024 ADHD (attention deficit hyperactivity disorder), combined type (ICD-10 - F90.2) start adderall xr 25mg every morning Plasma concentrations and pharmacologic effects of Adderall XR Oral Capsule Extended Release 24 Hour 20 MG may be increased by PARoxetine HCl Oral Tablet 30 MG. Additionally, additive serotonergic effects may occur, and the risk of serotonin syndrome may be increased. UDS + THC, pt reports she is no longer using THC gummies at night. Will monitor. Will not continue to prescribe stimulant if patient uses THC. 1. Major Depressive Disorder and Generalized Anxiety Disorder: - Patient is currently stable on Paxil 60 mg daily and Wellbutrin 300 mg daily. Plan: - Continue current medications and monitor for any changes in mood or anxiety levels. 2. Premenstrual Dysphoric Disorder (PMDD): - Patient has had a hysterectomy but still experiences symptoms around day 14 of her cycle. - Patient has started taking DIM for estrogen dominance and reports improvement. Plan: - Encourage continued exercise and diet management to help alleviate symptoms. 3. Attention Deficit Hyperactivity Disorder (ADHD): - Patient has a history of ADHD. Plan: - Start Adderall XR 25 mg every morning. - Patient is interested in immediate release adderall, discussed immediate release formulations are not advised, long acting stimulants are recommended and will provide sustained symptom coverage. - Monitor for side effects and consider alternatives like Vyvanse or methylphenidate products if needed. 4. Insomnia: - Patient is currently using zolpidem (Ambien) 10 mg as needed for sleep, usually taking 5 mg and sometimes the other 5 mg later. Plan: - Continue current medication and monitor for any changes in sleep patterns or side effects. 5. Herpes Simplex: - Patient is currently on valacyclovir 500 mg daily for suppressive treatment. Plan: - Continue current medication and monitor for any outbreaks or side effects. 6. Hydrocephalus with shunt placement: - Patient has a history of idiopathic hydrocephalus and has had two shunt revisions. - No current issues reported. Plan: - Monitor for any changes in symptoms or complications related to the shunt. Follow-up: - Plan to follow up in one month to assess the effectiveness of the new ADHD medication and overall mental health status. - Patient will complete a drug screen today, and prescriptions will be sent once the drug screen is on file. 54 Minutes spent with patient discussing patient history, current symptoms, impact of symptoms on daily functioning and treatment plan. Pt agrees with treatment plan. 11/02/2024 Herpes simplex (ICD-10 - B00.9) 1.anxiety: - Patient reports no current depression or anxiety symptoms. - Has high-functionin g anxiety and has recently ended a relationship, which has improved her mental health. Plan: Continue to monitor and provide support as needed. 2. Attention Deficit Hyperactivity Disorder (ADHD): - Medication: Adderall 25 mg Plan: - Refill prescription for Adderall 25 mg. - Instruct the patient to call the office or use the [facility] for future refills. - Continue to monitor the effectiveness of the medication and any potential side effects. 3. Follow-up: Plan: - Schedule a follow-up appointment in 3 months to assess the patient's overall health and any changes in her condition. - Provide information on the patient portal for easy access to medical records and appointment scheduling. 11/02/2024 ADHD (attention deficit hyperactivity disorder), combined type (ICD-10 - F90.2) start adderall xr 25mg every morning Plasma concentrations and pharmacologic effects of Adderall XR Oral Capsule Extended Release 24 Hour 20 MG may be increased by PARoxetine HCl Oral Tablet 30 MG. Additionally, additive serotonergic effects may occur, and the risk of serotonin syndrome may be increased. UDS + THC, pt reports she is no longer using THC gummies at night. Will monitor. Will not continue to prescribe stimulant if patient uses THC. 1.anxiety: - Patient reports no current depression or anxiety symptoms. - Has high-functionin g anxiety and has recently ended a relationship, which has improved her mental health. Plan: Continue to monitor and provide support as needed. 2. Attention Deficit Hyperactivity Disorder (ADHD): - Medication: Adderall 25 mg Plan: - Refill prescription for Adderall 25 mg. - Instruct the patient to call the office or use the [facility] for future refills. - Continue to monitor the effectiveness of the medication and any potential side effects. 3. Follow-up: Plan: - Schedule a follow-up appointment in 3 months to assess the patient's overall health and any changes in her condition. - Provide information on the patient portal for easy access to medical records and appointment scheduling. 02/05/2025 Herpes simplex (ICD-10 - B00.9) 02/05/2025 ADHD (attention deficit hyperactivity disorder), combined type (ICD-10 - F90.2) Plasma concentrations and pharmacologic effects of Adderall XR Oral Capsule Extended Release 24 Hour 20 MG may be increased by PARoxetine HCl Oral Tablet 30 MG. Additionally, additive serotonergic effects may occur, and the risk of serotonin syndrome may be increased. UDS + THC, pt reports she is no longer using THC gummies at night. Will monitor. Will not continue to prescribe stimulant if patient uses THC. 09/05/2024 Other Learning About Depression Screening material was printed 1. Anxiety and Depression - Patient reports a history of anxiety and depression, currently experiencing situational depression due to a recent breakup. - Patient is on bupropion 300mg and paroxetine 60 mg daily. - pt denied SI - Patient rates current anxiety as 6-7/10 and depression as 2-3/10. - Patient has tried other antidepressants in the past (Zoloft, Prozac, Trintellix) but experienced side effects. Plan: a. continue bupropion and paroxetine prescriptions. b. Encourage self-care including diet, exercise, and support system. c. Monitor progress in follow-up appointments. 2. Insomnia - Patient reports difficulty sleeping, previously taking Ambien 10 mg as needed. - Currently using sleep edibles and old Xanax with limited success. - Patient reports insomnia since depression in 2002. Plan: a. discuss insomnia with PMHNP at next visit b. Encourage good sleep hygiene and consider non-pharmacolog ical interventions for sleep. c. discourage the use of medications, as this is a safety risk. 3. ADHD - Patient has a history of taking Adderall XR 20 mg in the morning for ADHD, but has been off medication for five weeks. - Patient prefers immediate-relea se Adderall 20 mg in the morning only. Plan: a. Schedule an ADHD test for the patient to complete in the office. b. Refer to a mental health specialist for further evaluation and potential prescription of controlled substances, as they cannot be prescribed in the current setting.. 02/05/2025 Other 1. Attention Deficit Hyperactivity Disorder (ADHD): - Patient discontinued Adderall approximately two weeks ago due to increased anxiety and mood symptoms, particularly during premenstrual phase. - OBGYN suggested Vyvanse as a potentially better option for ADHD management in the context of PMDD. Plan: - Initiate lisdexamfetamine (Vyvanse) 50 mg PO daily - Educate patient on potential side effects and benefits of lisdexamfetamine compared to Adderall - Advise patient to monitor for changes in mood and anxiety symptoms with new medication 2. Premenstrual Dysphoric Disorder (PMDD): - Patient reports worsening of ADHD symptoms during hormonal changes associated with her menstrual cycle. - Currently on spironolactone for hormone management, with recent labs showing normalization of previously elevated estrogen levels. Plan: - Continue spironolactone for hormone management (dose not specified) - Monitor for changes in PMDD symptoms with the introduction of lisdexamfetamine - Discuss potential benefits of hormone replacement therapy for ADHD symptom management in perimenopausal women 3. Anxiety and Mood Disorder: - Patient continues to benefit from current antidepressant regimen, which includes paroxetine and bupropion. - Paroxetine has been particularly effective, with a history of rapid dose escalation from 20 mg to 50 mg approximately 20-21 years ago. Plan: - Continue paroxetine 60 mg PO daily - Continue bupropion 300 mg PO in the morning - Encourage continuation of lifestyle modifications, including exercise and healthy eating habits 4. Insomnia: - Patient reports using zolpidem as needed for sleep difficulties. Plan: - Continue zolpidem as needed for sleep (dose not specified) 5. Bruxism: - Patient reports teeth grinding, possibly due to stress or medication side effects. Plan: - Recommend use of a mouth guard for protection against teeth grinding - Monitor for changes in bruxism with the introduction of lisdexamfetamine Plan Of Treatment Pending Test Test Name Order Date UDT 09/05/2024 UDT 09/19/2024 ADHD Testing 09/05/2024 ADHD Testing 09/12/2024 Insurance Providers Payer Name Payer Address Payer Phone Subscriber Number Group Number Insured Name Patient Relationship to Insured Coverage Start Date Coverage End Date [employer] [place] [phone] [id number] MARCELA HUANG Self - patient is the insured Medical (General) History Medical History History ICD Code Past Psychiatric History: Anxiety Disord er,Major Depressive Episode abdominal aortic aneurysm: No atrial fibrillation: No chronic fatigue syndrome: No essential tremor: No hyperlipidemia: No hypertension: No Parkinson's disease: No restless leg syndrome: No stroke: No subdural hematoma: No type 1 diabetes mellitus: No type 2 diabetes mellitus: No vitamin B12 deficiency: No vitamin D deficiency: Yes stage three melanoma hydrocephalus PMDD Post depression Surgical History Surgery Date(Month/Year) ventriculoperitoneal shunt groin dissection wide excision hysterectomy, , ovaries retained. [employer] shunt placements and revisions in , 2007, and 2017.
--- OUTSIDE RECORDS SUMMARY | 2025-03-24 18:55 | XMS_ITS | Clinical Summary ---
Author Organization [facility] Address [address] [place] [address] Care Team Providers Care Lumber Racker Name Role Phone Milo Sullivan DO Primary Care Provider + Source Comments [facility],non-owned Affiliates and Associated Physician Practices is amultiple site organization consisting of ambulatory clinics and hospital sitesin [place], [place], [place] and [place]. This disclosure is being madepursuant to the Care Everywhere program and may not contain all information available regarding this patient. Last updated 18.[facility] Allergies Active Allergy Reactions Criticality Noted Date Comments Adhesive Sensitivity Rash Medium 10/06/2021 Medipore tape Tapentadol Rash Medium 10/06/2021 Medipore tape Vortioxetine Urticaria,Itching Medium 03/07/2021 Medications * Be aware that medications may not be up to date on this document. Alwaysverify current medications with the patient. zolpidem (AMBIEN) 10 MG tablet Take 0.5 mg by mouth 0 6 Active PARoxetine (PAXIL) 30 MG tablet Take 2 (two) tablets by mouth 6 Active vitamin D3 (CHOLECALCIFERO L) 400 UNIT tablet Active fluticasone propionate (FLONASE) 50 MCG/ACT nasal spray [place] 1 spray into the nose Active ALPRAZolam (XANAX) 0.5 MG tablet TK 1 T PO BID 5 8 Active amphetamine-dex troamphetamine XR 24hr (ADDERALL XR) 20 MG capsule Take 1 (one) capsule by mouth every morning Active progesterone 100 mg 100 mg tablet Take 1 (one) tablet by mouth at bedtime Active albuterol HFA (PROVENTIL; VENTOLIN; PROAIR) 108 (90 Base) MCG/ACT inhaler INHALE 2 PUFFS INTO THE LUNGS EVERY 6 HOURS NEEDED FOR WHEEZING 2 Active cetirizine (ZYRTEC) 10 MG tablet Active buPROPion XL 24hr (Wellbutrin-XL) 300 MG tablet Take 1 (one) tablet by mouth every morning 5 Active lisdexamfetamin e (Vyvanse) 50 MG capsule 1 capsule in the morning Orally Once a day for 30 days 5 Active spironolactone (Aldactone) 50 MG tablet Take 1 (one) tablet by mouth once daily 90 tablet 2 5 Active spironolactone (Aldactone) 25 MG tablet Take 1 (one) tablet by mouth once daily 30 tablet 2 5 02/24/20 25 Discontinu ed(Reorder ) Active Problems Problem Noted Date Diagnosed Date 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, 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 Malignant melanoma of skin 01/03/2014 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 06/2014 Encounters Date Type Department Care Team Description 03/19/2025 Telephone [facility] - Centralized Scheduling [address] [place] [phone] Dipak Mendoza MD Reschedule Appointment 02/27/2025 Travel 02/23/2025 10:30 AM CDT Office Visit [facility] - SCAFFOLD BUILDER [address] [place] [address], [address] [phone] Raudel Dias MD PMDD (premenstrual dysphoric disorder) (Primary Dx) 02/23/2025 Travel 01/25/2025 11:00 AM MARKETING FINANCIAL ANALYST Office Visit [facility] - [facility] [facility] [address] [place] [address], [address] [place] [phone] Raudel Dias MD PMDD (premenstrual dysphoric disorder) (Primary Dx) 01/12/2025 2:00 PM MARKETING FINANCIAL ANALYST Office Visit [facility] - [employer] [facility]ILDER [address] [facility], [address] [place] [phone] Raudel Dias MD PMDD (premenstrual dysphoric disorder) (Primary Dx) 01/12/2025 Travel from Last 3 Months Immunizations Immunization Administration Dates Next Due INFLUENZA VACCINE, TRIV. (AF LURIA, FLUZONE TRIVALENT; 6MO+) (IIV3) 01/03/2014 INFLUENZA VACCINE 09/10/2022,11/23/2021,10/04/20 18 INFLUENZA VACCINE, QUADR. (F LUZONE; FLULAVAL; FLUARIX; AFLURIA QUADRIVALENT; 6MO+), 0.5 ML (IIV4) 12/16/2020 TDAP (7yrs+) 12/16/2020 Social History Tobacco Use Types Packs/Day Years Used Date Smoking Tobacco: Former Cigarettes S tarted: 11/29/2003 Smokeless Tobacco: Never Tobacco Cessation:Counseling Given: Not Answered Alcohol Use Standard Drinks/Week Comments Yes 0 (1 standard drink = 0.6 oz pur e alcohol) PHQ-2 Answer Date Recorded Patient Health Questionnaire-2 Score 0 01/12/2025 Comments No Sex and Gender Information Value Date Recorded Sex Assigned at Not on file Legal Sex Female 5:29 PM MARKETING FINANCIAL ANALYST Gender Identity Not on file Sexual Orientation Not on file Last Filed Vital Signs Vital Sign Reading Time Taken Comments Blood Pressure 130/81 02/23/2025 10:46 AM CDT Pulse 79 06/14/2023 1:05 PM CDT Temperature 36.8 C (98.2 F) 06/14/2023 1:05 PM CDT Respiratory Rate 18 12/21/2022 2:15 PM MARKETING FINANCIAL ANALYST Oxygen Saturation 96% 06/14/2023 1:05 PM CDT Inhaled Oxygen Concentration - - Weight 61.2 kg (135 lb) 02/23/2025 10:46 AM CDT Height 170.2 cm (5' 7 ) 02/23/2025 10:46 AM CDT Body Mass Index 21.14 02/23/2025 10:46 AM CDT Plan of Treatment Health Maintenance Due Date Last Done Comments COLOGUARD (AGES 45-75) - COLON CA SCREENING 1974 COLON MONITORING 1974 COLONOSCOPY - COLON CA SCREENING 1974 CT COLONOGRAPHY - COLON CA SCREENING 1974 Colorectal Cancer Screening 1974 FIT - COLON CA SCREENING 1974 FLEX SIG - COLON CA SCREENING 1974 PAP SMEAR 1974 HIV SCREENING 1989 HEPATITIS B VACCINE (1 of 3 - 19+ 3-dose series) 1993 PNEUMOCOCCAL VACCINE 50+ (1 of 2 - PCV) 1993 ZOSTER VACCINE (1 of 2) 1993 COVID-19 VACCINE (3 - Pfizer risk series) 07/29/2021 07/01/2021, 06/05/2021 INFLUENZA VACCINE (Season Ended) 2025 09/10/2022, 11/23/2021, 12/16/2020, Additional history exists LIPID TESTING 10/09/2026 10/09/2021, 07/10/2020 MAMMOGRAM 01/10/2027 01/10/2025, 12/23, 09/22/2022, Additional history exists DTAP/TDAP/TD VACCINES (2 - Td or Tdap) 12/16/2030 12/16/2020 HEPATITIS C SCREENING Completed 11/27/2021 DEPRESSION SCREENING Completed 01/12/2025 HIB VACCINE Aged Out No longer eligi ble based on patient's age to complete this topic HPV VACCINE Aged Out No longer eligi ble based on patient's age to complete this topic MENINGOCOCCAL (Group B) VACCINE SHARED DECISION-MAKING Aged Out No longer eligible based on patient's age to complete this topic MENINGOCOCCAL GROUPS A/C/Y/W VACCINE Aged Out No longer eligible based on patient's age to complete this topic Procedures Procedure Name Priority Date/Time Associated Diagnosis Comments ESTRADIOL Routine 01/12/2025 2:48 PM MARKETING FINANCIAL ANALYST PMDD (premenstrual dysphoric disorder) FSH Routine 01/12/2025 2:48 PM MARKETING FINANCIAL ANALYST PMDD (premenstrual dysphoric disorder) PROGESTERONE Routine 01/12/2025 2:47 PM MARKETING FINANCIAL ANALYST PMDD (premenstrual dysphoric disorder) TESTOSTERONE FREE+TOTAL PANEL Routine 01/12/2025 2:47 PM MARKETING FINANCIAL ANALYST PMDD (premenstrual dysphoric disorder) from Last 3 Months Results * FSH (01/12/2025 2:48 PM MARKETING FINANCIAL ANALYST) FSH 12.7 mIU/mL [facility] ACCOUNT BILL Comment: Adult Female Range Follicular phase 3.5 - 12.5 Ovulation phase 4.7 - 21.5 Luteal phase 1.7 - 7.7 Postmenopausal 25.8 - 134.8 Blood BLOOD SPECIMEN / Unknown 01/12/2025 2:48 PM MARKETING FINANCIAL ANALYST 01/12/2025 Narrative [facility] ACCOUNT BILL - 01/13/2025 8:10 AM MARKETING FINANCIAL ANALYST Performed at: [address] [id number] Through Freight Engineer: Michael Suero PhD, Phone: [phone] Raudel Dias MD LAB - CHEMISTRY ORDERABLES Final Result [facility] ACCOUNT BILL [address] [place] [address] * ESTRADIOL (01/12/2025 2:48 PM MARKETING FINANCIAL ANALYST) Estradiol 340.0 pg/mL [facility] ACCOUNT BILL Comment: Adult Female Range Follicular phase 12.5 - 166.0 Ovulation phase 85.8 - 498.0 Luteal phase 43.8 - 211.0 Postmenopausal <6.0 - 54.7 1st trimester 215.0 - >4300.0 Fish ECLIA methodology Blood BLOOD SPECIMEN / Unknown 01/12/2025 2:48 PM MARKETING FINANCIAL ANALYST 01/12/2025 Narrative [facility] ACCOUNT BILL - 01/13/2025 8:10 AM MARKETING FINANCIAL ANALYST Performed at: [address] [id number] Through Freight Engineer: Micheal Suero PhD, Phone: [phone] us Raudel Dias MD LAB - CHEMISTRY ORDERABLES Final Result Performing Organization Address City/[facility]/ZIP Co de Phone Number [facility] ACCOUNT BILL [address] [place] [address] * TESTOSTERONE FREE+TOTAL PANEL (01/12/2025 2:47 PM MARKETING FINANCIAL ANALYST) Testosterone Total LC-MS 20.3 ng/dL [facility] ACCOUNT BILL Comment: Female: Premenopausal 10.0 - 55.0 Postmenopausal 7.0 - 40.0 Free Testosterone(Dire ct) 0.6 0.0 - 4.2 pg/mL [facility] ACCOUNT BILL Blood BLOOD SPECIMEN / Unknown 01/12/2025 2:47 PM MARKETING FINANCIAL ANALYST 01/12/2025 Narrative [facility] ACCOUNT BILL - 01/19/2025 3:09 PM MARKETING FINANCIAL ANALYST Test(s) [id number], Total, LC/MS was developed and its performance characteristics determined by [facility]. It has not been cleared or approved by the Food and Drug Administration. Performed at: - [address] [id number] Through Freight Engineer: Renetta Ghosh MD, Phone: [phone] Raudel Dias MD LAB - CHEMISTRY ORDERABLES Final Result Performing Organization Address City/[facility] Co de Phone Number [facility] ACCOUNT BILL [address] [place] [address] * PROGESTERONE (01/12/2025 2:47 PM MARKETING FINANCIAL ANALYST) Progesterone 2.1 ng/mL [facility] ACCOUNT BILL Comment: Follicular phase 0.1 - 0.9 Luteal phase 1.8 - 23.9 Ovulation phase 0.1 - 12.0 First trimester 11.0 - 44.3 Second trimester 25.4 - 83.3 Third trimester 58.7 - 214.0 Postmenopausal 0.0 - 0.1 Blood BLOOD SPECIMEN / Unknown 01/12/2025 2:47 PM MARKETING FINANCIAL ANALYST 01/12/2025 Narrative [facility] ACCOUNT BILL - 01/13/2025 9:10 AM MARKETING FINANCIAL ANALYST Performed at: - [facility] [id number] [place], [place] [id number] Through Freight Engineer: Michael Suero PhD, Phone: [phone] Raudel Dias MD LAB - CHEMISTRY ORDERABLES Final Result [facility] ACCOUNT BILL [address] [place] [address] from Last 3 Months Insurance [facility] * Guarantor: ELIZABET HUANG Account Type Relation to Patient Date of Phone Billing Address Personal/Family [address] [place] [address] [facility] Member Subscriber Plan / Payer (Ef fective 2019-Present) Name:Elizabet Huang Relation to Subscriber:Self Name:ELIZABET HUANG Payer ID:[id number] (NAIC) Type:PPO Address: [phone] ANTH Member Subscriber Plan / Payer (Ef fective 2019-) Name:MoniquedebraElizabet Relation to Subscriber:Self Name:MONIQUEELIZABET RICHARDSON Payer ID:[id number] ([facility]) Type:O Address: [phone] ANTH Member Subscriber Plan / Payer (Ef fective 2019-) Name:Elizabet Huang Relation to Subscriber:Self Name:ELIZABET HUANG Payer ID:[id number] ([facility]) Type:O Address: [id number] CARE [facility] Member Subscriber Plan / Payer ( fective 2019-) Name:Elizabet Huang Relation to Subscriber:Self Name:ELIZABET HUANG Payer ID:[id number] ([facility]) Type:PPO Address: [address] [facility] Member Subscriber Plan / Payer ( fective 2019-) Name:Elizabet Huang Relation to Subscriber:Self Name:ELIZABET HUANG Payer ID:[id number] (NA) Type:PPO Address: [place] [phone] [facility] Member Subscriber Plan / Payer ( fective 2019-) Name:Elizabet Huang Relation to Subscriber:Self Name:SALELIZABET Payer ID:[id number] (NAIC) Type:PPO Address: [address] [facility] Member Subscriber Plan / Payer ( fective 2019-) Name:Elizabet Huang Relation to Subscriber:Self Name:ELIZABET HUANG Payer ID:[id number] (NAIC) Type:PPO Address: [phone] CARE [facility] Member Subscriber Plan / Payer ( fective 2019-) Name:Moniquedebra Elizabet Miladys Relation to Subscriber:Self Name:MONIQUEANDREWS RICHARDSONELIZABET Payer ID:[id number] (NA) Type:PPO Address: [address] HEALTH CARE [facility] CARE [facility] Member Subscriber Plan / Payer ( fective 2019-) Name:AlixElizabet shelton Miladys Relation to Subscriber:Self Name:MONIQUEELIZABET RICHARDSON Payer ID:[id number] (NAIC) Type:PPO Address: [address] HEALTH CARE [facility] Member Subscriber Plan / Payer ( fective 2019-) Name:Elizabet Huang Relation to Subscriber:Self Name:MONIQUEDEBRAELIZABET Payer ID:[id number] (IC) Type:PPO Address: [address] CARE Member Subscriber Plan / Payer (Ef fective 2022-) Name:Elizabet Huang Relation to Subscriber:Spouse Name:KAUR HUANG Date of :1977 Payer ID:[id number] (NAIC) Type:PPO Address: [place] [phone] Care Teams Lumber Racker Relationship Specialty Start Date End Date Milo Sullivan DO [address] [place] [phone] PCP - General 08/17/20
--- OUTSIDE RECORDS SUMMARY | 2025-03-24 18:55 | XMS_ITS | Encounter Summary ---
Author Organization [facility] Address [address] [facility] [place] [address] Care Team Providers Care Aircraft Refueler Name Role Phone Milo Sullivan DO Primary Care Provider + Encounter Details Date Type Department Care Team (Late st Contact Info) Description 04/20/2024 Lab Requisition [facility] - DermPath Lab [address] [facility] [place] [phone] Madyson Lee MD [address] [place] [address] Melanocytic nevi of left lower limb, including hip; Neoplasm of uncertain behavior of skin Social History Tobacco Use Types Packs/Day Years Used Date Smoking Tobacco: Former Cigarettes S tarted: 11/29/2003 Smokeless Tobacco: Never Alcohol Use Standard Drinks/Week Comments Yes 0 (1 standard drink = 0.6 oz pur e alcohol) Comments Unknown Sex and Gender Information Value Date Recorded Sex Assigned at Not on file Legal Sex Female 5:29 PM MILL AND COAL TRANSPORT OPERATOR Gender Identity Not on file Sexual Orientation Not on file documented as of this encounter Plan of Treatment Not on file documented as of this encounter Procedures Procedure Name Priority Date/Time Associated Diagnosis Comments DERMATOPATHOLOGY Routine 04/20/2024 12:0 0 AM CDT Melanocytic nevi of left lower limb, including hip Neoplasm of uncertain behavior of skin documented in this encounter Results * DERMATOPATHOLOGY (04/20/2024 12:00 AM CDT) Case Report Dermatopathology Report Case: [id number] Authorizing Provider: Madyson Lee MD Collected: 04/20/2024 12:00 AM Ordering Location: [facility] - Received: 04/24/2024 06:17 AM DermPath Lab Pathologist: Alexus Lainez MD Specimen: Skin, left knee 3:43 PM CDT DERMATOPATHOLOGY LABORATORY Final Diagnosis Specimen A. SKIN, left knee: DERMAL SCAR RESIDUAL MELANOCYTIC PROLIFERATION NOT IDENTIFIED (L90.5) 3:43 PM CDT DERMATOPATHOLOGY LABORATORY Clinical History Lentiginous junctional nevus with severe atypia. Check margins. 3:43 PM CDT DERMATOPATHOLOGY LABORATORY Gross Description Specimen A: Received is one formalin filled container labeled with the patient's name and designated left knee. The specimen consists of a non-oriented ellipse of skin measuring 25i12x1 mm. The epidermal surface is unremarkable. The margin is inked green. The 12 o'clock and 6 o'clock tips are submitted in cassette 1. The remainder of the ellipse is serially sectioned and submitted in cassette 2-3. Jar 0. 3:43 PM CDT DERMATOPATHOLOGY LABORATORY Microscopic Description Specimen A. SKIN, left knee: There are fibroblasts and collagen bundles oriented parallel to the skin surface. There are elongated blood vessels, some of which are oriented perpendicular to the skin surface. No residual melanocytic proliferation is identified. 3:43 PM CDT DERMATOPATHOLOGY LABORATORY Disclaimer An external and internal positive and negative controls are appropriate for the histochemical, immunohistochemical and immunofluorescence stain(s) in this case (if any), except where stated explicitly. The performance characteristics of the stain(s) cited in this report were developed and its performance characteristic determined by the Dermatopathology Laboratory at [facility], directed by Dr. Lea Lara. These tests need not be, and therefore are not, approved by the [place] Food and Drug Administration. The tests are used for clinical purposes. Billing Codes Specimen Charges Stain Charges 68355 1 4 3:43 PM CDT DERMATOPATHOLOGY LABORATORY Embedded Images 4 3:43 PM CDT DERMATOPATHOLOGY LABORATORY Pathology/Cytolog y TISSUE SPECIMEN FROM SKIN / Unknown 04/20/2024 04/24/2024 6:17 AM CDT Madyson Lee MD LAB - PATHOLOGY/CYTOLOGY ORDER AKBAR Final Result DERMATOPATHOLOGY LABORATORY [facility] - Department of Dermatology [address] [phone] documented in this encounter Visit Diagnoses Diagnosis Melanocytic nevi of left lower limb, including hip Neoplasm of uncertain behavior of skin documented in this encounter Care Teams Aircraft Refueler Relationship Specialty Start Date End Date Milo Sullivan DO [address] [place] [address] PCP - General 08/17/20 documented as of this encounter
--- OUTSIDE RECORDS SUMMARY | 2025-03-24 18:55 | XMS_ITS | Clinical Summary ---
Author Organization [facility] Address [address] [facility] [place] [address] Phone Care Team Providers Care Director Writing Name Role Phone Unavailable Primary Care Provider Unavailabl e Allergies Active Allergy Reactions Criticality Noted Date Comments Adhesive Rash Low 10/06/2021 Medipore tape Medications PARoxetine HCl (PaxiL) 30 mg tablet Take 60 mg by mouth daily. Active buPROPion HCL (WELLBUTRIN XL) 150 mg Extended Release 24 hour tablet Take 150 mg by mouth daily in the morning. Active amphetamine-dex troamphetamine (Adderall XR) 20 mg Extended Release 24 hour capsule Take 20 mg by mouth 1 time daily as needed for Other (See Comment) (focus). Active zolpidem (AMBIEN) 5 mg tablet Take 5 mg by mouth nightly as needed for Insomnia. Active fluticasone propionate (FLOVENT HFA) 110 mcg/actuation HFA Aerosol Inhaler Take 2 Puffs by inhalation daily. Active fluticasone propionate (FLONASE) 50 mcg/spray Hood, Suspension nasal inhaler Administer 2 Sprays in each nostril daily. Active cetirizine HCl (ZYRTEC ORAL) Take by mouth daily at bedtime. Active ALBUTEROL SULFATE INHALATION Take 1 Puff by inhalation 1 time daily as needed. Active acetaminophen (TYLENOL) 500 mg tablet Take 500 mg by mouth every 6 hours as needed. Active sodium chloride 0.9 % irrigation Solution Apply to affected area three times a day 1000 mL 10/15/2021 3:45 PM ADVERTISING CLERK Active Active Problems Problem Noted Date Diagnosed Date Status post hysterectomy 10/09/2021 Social History Tobacco Use Types Packs/Day Years Used Date Smoking Tobacco: Former Cigarettes Q uit: 10/06/2010 Comments:less than a pack pe r month-social smoker until late 30's Alcohol Use Standard Drinks/Week Comments Yes 0 (1 standard drink = 0.6 oz pur e alcohol) social- 2-3 drinks/ week Comments No Sex and Gender Information Value Date Recorded Sex Assigned at Not on file Legal Sex Female 1:44 PM CDT Gender Identity Not on file Sexual Orientation Not on file Last Filed Vital Signs Vital Sign Reading Time Taken Comments Blood Pressure 102/61 10/11/2021 4:26 PM ADVERTISING CLERK Pulse 82 10/11/2021 4:26 PM ADVERTISING CLERK Temperature 36.8 C (98.3 F) 10/11/2021 4:26 PM ADVERTISING CLERK Respiratory Rate 16 10/11/2021 4:26 PM ADVERTISING CLERK Oxygen Saturation 98% 10/11/2021 4:26 PM ADVERTISING CLERK Inhaled Oxygen Concentration - - Weight 57.6 kg (127 lb) 10/09/2021 11:04 AM ADVERTISING CLERK Height 170.2 cm (5' 7 ) 10/09/2021 11:04 AM ADVERTISING CLERK Body Mass Index 19.89 10/09/2021 11:04 AM ADVERTISING CLERK Plan of Treatment Health Maintenance Due Date Last Done Comments HEPATITIS B VACCINES (1 of 3 - 19+ 3-dose series) 06/23 BREAST CANCER SCREENING 2014 COLORECTAL SCREENING 2019 Colorectal Cancer Screening 2019 FIT-DNA Q 3 years 2019 FIT/FOBT Q 1 year 2019 Flex Sig/CT Colonography Q 5 years 2019 INFLUENZA VACCINE (#1) 2024 12/16/2020 ZOSTER VACCINE (1 of 2) 2024 DTAP/TDAP/TD VACCINES (2 - Td or Tdap) 12/16/2030 Medical Devices Implanted Type Area Doughnut Maker Device Identifier Shelf Expiration Date Model / Serial / Lot Diving Judge Shunt Insurance [facility] BLUE OPTIONS RX OPTUM RX Member Subscriber Plan / Payer (Ef fective for All Dates) Name:Elizabet Jones Relation to Subscriber:Self Name:Elizabet Jones Payer ID:Not on file Group ID:[id number] Type:RX Commercial Address: [address] [place] Advance Directives For more information, please contact: [phone] * Full Code (Latest Code Status on File) Date Activated Date Inactivated Comments 10/09/2021 5:38 PM 10/11/2021 8:01 PM * Full Code Date Activated Date Inactivated Comments 10/09/2021 11:11 AM 10/09/2021 5:38 PM
--- OUTSIDE RECORDS SUMMARY | 2025-03-24 18:55 | XMS_ITS | Encounter Summary ---
Author Organization [facility] Address [address] [place] [address] Care Team Providers Care Mechanical Cad Drafter Name Role Phone Unavailable Primary Care Provider Unavailabl e Encounter Details Date Type Department Care Team (Late st Contact Info) Description 05/19/2023 Hermes IQhart Message Enc [facility] - [facility] [address] [place], [place] [address] [employer], [facility] Provider Air Quality Message Social History Tobacco Use Types Packs/Day Years [...] Date Recorded Patient Health Questionnaire-2 Score 0 01/22/2023 Comments No Sex and Gender Information Value Date Recorded Sex Assigned at Not on file Legal Sex Female 12:12 PM CDT Gender Identity Not on file Sexual Orientation Not on file Occupation Industry Job Start Date Job End Date Not on file Not on file Not on file Not on file documented as of this encounter Plan of Treatment Not on file documented as of this encounter Visit Diagnoses Not on filedocumented in this encounter Additional Health Concerns Assessment Noted Time PHQ-9 Depression Total Score: 0 11/27/19 22 9:32 AM SKEIN SPOOLER documented as of this encounter
[2025-03-24 19:02] VITALS: BP 112/69; PULSE 95; RESP 18; TEMP 36.6; O2SAT 100
== END 2025-03-24 19:12 | disposition home or self-care (01) ==
PROVIDERS: Emergency Provider Nurse Practitioner Family; PCP Nurse Practitioner Family
DX: J06.9 Acute upper respiratory infection, unspecified (principal); R05.9 Cough, unspecified; J45.909 Unspecified asthma, uncomplicated; Z87.891 Personal history of nicotine dependence; F90.9 Attention-deficit hyperactivity disorder, unspecified type; F41.9 Anxiety disorder, unspecified; F32.A Depression, unspecified; Z98.2 Presence of cerebrospinal fluid drainage device
CPT/HCPCS: 99213; G0463

== ENCOUNTER 2025-08-28 16:19 | Emergency (ER) | payer OTHER, SELFPAY ==
[2025-08-28 16:30] VITALS: BP 128/81; PULSE 67; RESP 18; TEMP 36.3; O2SAT 100
--- OUTSIDE RECORDS SUMMARY | 2025-08-28 16:43 | XMS_ITS | Encounter Summary ---
Author Organization [facility] Address [address] [place] [address] Care Team Providers Care Drop Machine Operator Name Role Phone Unavailable Primary Care Provider Unavailabl e Encounter Details Date Type Department Care Team (Late st Contact Info) Description 11/28/2021 CoFluent Design Message [facility] Family & Internal Medicine [address] [phone] [place], [facility] Provider results Social History Tobacco Use Types [...] COVID-19? No / Unsure 11/27/2021 8:56 AM LIBRARIAN SCHOOL documented as of this encounter Plan of Treatment Not on file documented as of this encounter Visit Diagnoses Not on filedocumented in this encounter Additional Health Concerns Assessment Noted Time PHQ-9 Depression Total Score: 0 11/27/19 22 9:32 AM LIBRARIAN SCHOOL documented as of this encounter
--- OUTSIDE RECORDS SUMMARY | 2025-08-28 16:43 | XMS_ITS | Clinical Summary ---
Author Organization [facility] Address [address] [place] [address] Phone Care Team Providers Care President And Ceo Name Role Phone Unavailable Primary Care Provider [...] daily. Active fluticasone propionate (FLONASE) 50 mcg/spray [place], Suspension nasal inhaler Administer 2 Sprays in [...] a day 1000 mL 10/15/2021 3:45 PM COURTROOM DEPUTY OR CALENDAR CLERK Active Active Problems Problem Noted Date Diagnosed Date Status post hysterectomy 10/09/2021 Social History Tobacco Use Types Packs/Day Years Used Date Smoking Tobacco: Former Cigarettes Q uit: 10/06/2010 Comments:less than a pack pe r month-social smoker until late 30' Alcohol Use Standard Drinks/Week Comments Yes 0 [...] Comments Blood Pressure 102/61 10/11/2021 4:26 PM COURTROOM DEPUTY OR CALENDAR CLERK Pulse 82 10/11/2021 4:26 PM COURTROOM DEPUTY OR CALENDAR CLERK Temperature 36.8 C (98.3 F) 10/11/2021 4:26 PM COURTROOM DEPUTY OR CALENDAR CLERK Respiratory Rate 16 10/11/2021 4:26 PM COURTROOM DEPUTY OR CALENDAR CLERK Oxygen Saturation 98% 10/11/2021 4:26 PM COURTROOM DEPUTY OR CALENDAR CLERK Inhaled Oxygen Concentration - - Weight 57.6 kg (127 lb) 10/09/2021 11:04 AM COURTROOM DEPUTY OR CALENDAR CLERK Height 170.2 cm (5' 7) 10/09/2021 11:04 AM COURTROOM DEPUTY OR CALENDAR CLERK Body Mass Index 19.89 10/09/2021 11:04 AM COURTROOM DEPUTY OR CALENDAR CLERK Plan of Treatment Health Maintenance Due Date Last Done Comments HEPATITIS B VACCINES (1 of 3 - 19+ 3-dose series) 06/23 BREAST CANCER SCREENING 2014 COLORECTAL SCREENING 2019 Colorectal Cancer Screening 2019 FIT-DNA Q 3 years 2019 FIT/FOBT Q 1 year 2019 Flex Sig/CT Colonography Q 5 years 2019 ZOSTER VACCINE (1 of 2) 2024 INFLUENZA VACCINE (#1) 2025 12/16/2020 DTAP/TDAP/TD VACCINES (2 - Td or Tdap) 12/16/2030 Medical Devices Implanted Type Area Assistant Director Of Financial Aid Device Identifier Shelf Expiration Date Model / Serial / Lot Lawnmower Repair Mechanic Shunt Insurance RX OPTUM RX Member Subscriber Plan / Payer (Ef fective for All Dates) Name:Elizabet Jones Relation to Subscriber:Self Name:Elizabet Jones Payer ID:Not on file Group ID:[id number] Type:RX Commercial Address: [address] Advance Directives For more information, please contact: [phone] * Full Code (Latest Code Status on File) Date Activated Date Inactivated Comments 10/09/2021 5:38 PM 10/11/2021 8:01 PM * Full Code Date Activated Date Inactivated Comments 10/09/2021 11:11 AM 10/09/2021 5:38 PM
--- OUTSIDE RECORDS SUMMARY | 2025-08-28 16:43 | XMS_ITS | Clinical Summary ---
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 OTHER SURGICAL HISTORY Dysplasia of cervix: [...] on file Legal Sex Female 2:07 AM HYDRAULIC GOVERNOR ASSEMBLER Gender Identity Not on file Sexual Orientation Not on file Obstetrics History Last Filed Vital Signs Vital Sign Reading Time Taken Comments Blood Pressure 110/65 12/08/2024 1:50 AM HYDRAULIC GOVERNOR ASSEMBLER Pulse 65 12/08/2024 1:50 AM HYDRAULIC GOVERNOR ASSEMBLER Temperature 36.9 C (98.5 F) 12/07/2024 9:46 PM HYDRAULIC GOVERNOR ASSEMBLER Respiratory Rate 18 12/08/2024 1:50 AM HYDRAULIC GOVERNOR ASSEMBLER Oxygen Saturation 96% 12/08/2024 1:50 AM HYDRAULIC GOVERNOR ASSEMBLER Inhaled Oxygen Concentration - - Weight 60.1 kg (132 lb 7.9 oz) 12/07/2024 9:46 P M HYDRAULIC GOVERNOR ASSEMBLER Height 170.2 cm (5' 7) 12/07/2024 9:46 PM HYDRAULIC GOVERNOR ASSEMBLER Body Mass Index 20.75 12/07/2024 9:46 PM HYDRAULIC GOVERNOR ASSEMBLER Plan of Treatment Health Maintenance Due Date Last Done Comments Colon Cancer Screening-Colonoscopy 1974 Depression Screening 1974 Hepatitis C Screening 1974 Hepatitis B Screening 1992 Regular Well Visit/Exam 18-64 1992 Zoster Vaccine (1 of 2) 1993 Covid-19 Vaccine (3 - Pfizer risk series) 07/29/2021 07/01/2021, 06/05/2021 Influenza Vaccine (#1) 2025 2, 11/23/2021, 12/16/2020, Additional history exists Breast Cancer Screening-Mammogram 01/10/2026 01/10/2025, 09/22/2022, 07/25/2021, Additional history exists DTaP/Tdap/Td Vaccine (2 - Td or Tdap) 12/16/2030 12/16/2020 Cervical Cancer Screening Discontinued 2015, 10/09/2013, 10/09/2013 Pneumococcal vaccine <65 Completed 01/22/2023 Medical Devices Implanted Type Area Return Checker Device Identifier Shelf Expiration Date Model / Serial / Lot CodConformiq/DocumentCloud&Olista [id number] Bactiseal 14cm Csf Ventricular Catheter External Drainage Sterile - S0 - [id number] Implanted:Qty: 1 on 08/02/2018 by Lenard Lopez Jr., MD at [facility] Shunt CodConformiq/J&Olista [id number] 11/21/2018 [id number] / [id number] / [id number] Procedures Procedure Name Priority Date/Time Associated Diagnosis Comments SCREENING MAMMOGRAM BILATERAL W TIMOTEO W IMPLANTS Schedule Routine, Read Routine (OP Routine) 01/10/2025 4:00 PM HYDRAULIC GOVERNOR ASSEMBLER Screening mammogram, encounter for GENITAL FLUID PAP SMEAR, THIN PREP AND HPV Routine 06/30/2016 12:00 AM CDT from Last 3 Months or Most Recently Relevant to Health Maintenance Results * Screening Mammogram Bilateral W Timoteo W Implants (01/10/2025 4:00 PM HYDRAULIC GOVERNOR ASSEMBLER) Anatomical Region Laterality Modality Breast Bilateral Mammography Narrative 01/11/2025 6:30 AM HYDRAULIC GOVERNOR ASSEMBLER Examination: Screening Mammogram Bilateral W Timoteo W [...] Most Recently Relevant to Health Maintenance Insurance [address] [place] [address] [facility] [address] [place] [address] [facility] CHOICE PLUS [address] [place] [address] [facility] CHOICE CHOICE [facility] Address: [address] [place] [address] [address] [place] [address] [place] [address] [place] [address] Advance Directives For more information, please contact: [phone] * Full Code (Latest Code Status on File) Date Activated Date Inactivated Comments 08/01/2018 11:05 PM 08/03/2018 4:45 PM Care Teams Diesel Engine Specialist Relationship Specialty Start Date End Date Baldev Burdick NP [address] [place] [address] PCP - General Nurse Practitioner 12/08/24 Rick Potts MD Consulting Physician Endocrinology Diabetes & Metabolism 11/18/21
--- OUTSIDE RECORDS SUMMARY | 2025-08-28 16:43 | XMS_ITS | Clinical Summary ---
Author Organization [facility] Address [address] [place] [address] Care Team Providers Care Clinical Sociologist Name Role Phone Unavailable Primary Care Provider [...] type 06/06/2020 Mild persistent asthma without complication ([facility]) 06/06/2020 BMI 20.0-20.9, adult 06/06/2020 Displacement of ventricular intracranial shunt 0 08/12/2018 Hydrocephalus ([facility]) 07/29/2018 Malignant melanoma of skin ([facility]) 10/2014 Resolved Problems Problem Noted Date Diagnosed Date Resolved Date Depression with anxiety 06/06/2020/2 03/2021 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, unspecified ([facility]) 04/30/2014 12/29/2023 Encounters Date Type Department Care Team Description 06/18/2025 Scan [facility] HEALTH INFO SRVCS Scanned, Doc Med Group from Last 3 Months Immunizations Immunization Administration Dates Next Due Fluzone [...] Comments Blood Pressure 110/74 12/29/2023 2:06 PM OCCUPATIONAL THERAPY PROGRAM DIRECTOR Pulse 74 12/29/2023 2:06 PM OCCUPATIONAL THERAPY PROGRAM DIRECTOR Temperature 36.9 C (98.4 F) 12/29/2023 2:06 PM OCCUPATIONAL THERAPY PROGRAM DIRECTOR Respiratory Rate 16 12/29/2023 2:06 PM OCCUPATIONAL THERAPY PROGRAM DIRECTOR Oxygen Saturation 98% 12/29/2023 2:06 PM OCCUPATIONAL THERAPY PROGRAM DIRECTOR Inhaled Oxygen Concentration - - Weight 57.2 kg (126 lb) 03/27/2024 2:27 PM CDT Height 170.2 cm (5' 7) 03/27/2024 2:27 PM CDT Body Mass Index 19.73 03/27/2024 2:27 PM CDT Plan of Treatment Health Maintenance Due Date Last Done Comments Cervical Cancer Screening Pap Smear (Age 30 to 64) Every 3 Years 1974 Annual Physical 1977 Hepatitis B Vaccines (1 of 3 - 19+ 3-dose series) 1993 Zoster Vaccines (1 of 2) 2024 Cervical Cancer Screening Pap with HPV Testing (Age 30 to 64) Every 5 Years 09/15/2024 09/15/2019, 09/13/2019, 11/24/2017, Additional history exists Cervical Cancer Screening with HPV 09/15/2024 Mammogram Screening 09/22/2024 09/22/2022, 07/25/2021, 08/22/2019 PHQ-2 ([facility] [place]) 11/22/2024 12/29/2023 COVID-19 Vaccine ( - season) 2025 07/01/2021, 06/05/2021 DTaP, Tdap and Td Vaccines (2 - [...] 09/22/2022 HEPATITIS C ANTIBODY 11/27/2021 9:41 AM OCCUPATIONAL THERAPY PROGRAM DIRECTOR OUTSIDE CYTOPATH CERV/VAG INTERPRET (PAP) 09/15/2019 from Last 3 Months or Most Recently Relevant to Health Maintenance Results * COLONOSCOPY GENERIC (SCAN ORDER) (10/26/2022) 10/26/2022 us [facility] Scanned SCANNING Final Resu lt * MAMMOGRAM GENERIC (09/22/2022) Anatomical Region Laterality Modality Other 09/22/2022 us [facility] Scanned SCANNING Final Resu lt * HEPATITIS C ANTIBODY (11/27/2021 9:41 AM OCCUPATIONAL THERAPY PROGRAM DIRECTOR) HEPATITIS C AB 0.2 0.0 - 0.9 s/co ratio [facility] 1 Comment: Negative: < 0.8 Indeterminate: 0.8 - 0.9 Positive: > 0.9 The CDC recommends that a positive HCV antibody result be followed up with a HCV Nucleic Acid Amplification test (265367). 11/27/2021 9:41 AM OCCUPATIONAL THERAPY PROGRAM DIRECTOR 11/27/2021 Narrative [facility] - 11/28/2021 8:13 AM OCCUPATIONAL THERAPY PROGRAM DIRECTOR Performed at: 01 - [facility] [address] [id number] Lockstitch Sleeve Maker: Michael Suero PhD, Phone: [phone] us Milo Sullivan DO LABORATORY Final Re sult [facility] [address] [place] [address] [facility] 1 * OUTSIDE CYTOPATH VAG/CERV PAP WITH HPV (09/15/2019) 09/15/2019 Narrative 09/15/2019 Ordered by an unspecified provider. us Documents Scanned SCANNING Final Result from Last 3 Months or Most Recently Relevant to Health Maintenance Insurance
--- OUTSIDE RECORDS SUMMARY | 2025-08-28 16:43 | XMS_ITS | Encounter Summary ---
Author Organization [facility] Address [address] [place] [address] Care Team Providers Care Agricultural Loan Officer Name Role Phone Unavailable Primary Care Provider Unavailabl e Encounter Details Date Type Department Care Team (Late st Contact Info) Description 05/19/2023 Naldohart Message Enc [facility] [address] [place], [place] [address] eTapestry, [facility] Provider Air Quality Message Social History Tobacco [...] Total Score: 0 11/27/19 22 9:32 AM SWING FRAME GRINDER OPERATOR documented as of this encounter
--- OUTSIDE RECORDS SUMMARY | 2025-08-28 16:43 | XMS_ITS ---
Author Organization [facility] Address [address] [place] [address] Care Team Providers Care Bread Distributor Name Role Phone Milo Sullivan DO Primary Care Provider + Active Problems Problem [...]
--- OUTSIDE RECORDS SUMMARY | 2025-08-28 16:43 | XMS_ITS | Clinical Summary ---
Author Organization [facility] Address [address] [place] [address] Care Team Providers Care Aircraft Magneto Mechanic Name Role Phone VarunmargaritaaylamichaelMilo Ming [place] Primary Care Provider + Source Comments [facility],non-owned Affiliates and Associated Physician Practices is amultiple site organization consisting of ambulatory clinics and hospital sitesin [place], [place], [place] and [place]. This disclosure is being madepursuant to the Care Everywhere program and may not contain all information available regarding this patient. Last updated 18.[facility] Allergies Active Allergy Reactions Criticality Noted Date Comments Adhesive Sensitivity Rash Medium 10/06/2021 Medipore tape Tapentadol Rash Medium 10/06/2021 Medipore tape Vortioxetine Itching,Urticaria,Rash Medium 03/07/2021 Medications * Be aware that medications may not be up to date on this document. Alwaysverify current medications with the patient. zolpidem (AMBIEN) 10 MG tablet Take 0.5 mg by mouth 0 08/18/2016 Active PARoxetine (PAXIL) 30 MG tablet Take 2 (two) tablets by mouth 09/07/2016 Active vitamin D3 (CHOLECALCIFERO L) 400 UNIT tablet Active fluticasone propionate (FLONASE) 50 MCG/ACT nasal spray [place] 1 spray into the nose Active ALPRAZolam (XANAX) 0.5 MG tablet TK 1 T PO BID 5 10/17/2018 Activ e amphetamine-dex troamphetamine XR 24hr (ADDERALL XR) 20 MG capsule Take 1 (one) capsule by mouth every morning Active progesterone 100 mg 100 mg tablet Take 1 (one) tablet by mouth at bedtime Active albuterol HFA (PROVENTIL; VENTOLIN; PROAIR) 108 (90 Base) MCG/ACT inhaler INHALE 2 PUFFS INTO THE LUNGS EVERY 6 HOURS NEEDED FOR WHEEZING 11/30/2021 Active cetirizine (ZYRTEC) 10 MG tablet Active buPROPion XL 24hr (Wellbutrin-XL) 300 MG tablet Take 1 (one) tablet by mouth every morning 12/20/2024 Active lisdexamfetamin e (Vyvanse) 50 MG capsule 1 capsule in the morning Orally Once a day for 30 days 02/05/2025 Active spironolactone (Aldactone) 50 MG tablet Take 1 (one) tablet by mouth once daily 90 tablet 2 02/23/2025 Active Active Problems Problem Noted Date Diagnosed Date 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, 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 Malignant melanoma of skin 01/03/2014 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 06/2014 Encounters Date Type Department Care Team Description 06/18/2025 2:00 PM CDT Office Visit [facility] - General Surgery [address] [place] [phone] Dipak Mendoza MD 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); 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 Travel from Last 3 Months Immunizations Immunization [...] on file Legal Sex Female 5:29 PM BLOW OFF WORKER Gender Identity Not on file Sexual Orientation Not on file Last Filed Vital Signs Vital Sign Reading Time Taken Comments Blood Pressure 109/69 06/18/2025 1:58 PM CDT Pulse 72 06/18/2025 1:58 PM CDT Temperature 36.8 C (98.2 F) 06/18/2025 1:58 PM CDT Respiratory Rate 18 12/21/2022 2:15 PM BLOW OFF WORKER Oxygen Saturation 98% 06/18/2025 1:58 PM CDT Inhaled Oxygen Concentration - - Weight 61.2 kg (135 lb) 06/18/2025 1:58 PM CDT Height 170.2 cm (5' 7) 06/18/2025 1:58 PM CDT Body Mass Index 21.14 06/18/2025 1:58 PM CDT Plan of Treatment Upcoming Encounters Date Type Department Care Team (Late st Contact Info) Description 09/04/2025 9:20 AM CDT Appointment [facility] CAT SCAN [address] [place] [phone] Dipak Mendoza MD [address] [address] Health Maintenance Due Date Last Done Comments COLOGUARD (AGES 45-75) - COLON CA SCREENING 1974 COLON MONITORING 1974 COLONOSCOPY - COLON CA SCREENING 1974 CT COLONOGRAPHY - COLON CA SCREENING 1974 Colorectal Cancer Screening 1974 FIT - COLON CA SCREENING 1974 FLEX SIG - COLON CA SCREENING 1974 HIV SCREENING 1989 HEPATITIS B VACCINE (1 of 3 - 19+ 3-dose series) 1993 PNEUMOCOCCAL VACCINE 50+ (1 of 2 - PCV) 1993 ZOSTER VACCINE (1 of 2) 1993 COVID-19 VACCINE (3 - Pfizer risk series) 07/29/2021 07/01/2021, 06/05/2021 INFLUENZA VACCINE (#1) 2025 2, 11/23/2021, 12/16/2020, Additional history exists LIPID TESTING [...] on patient's age to complete this topic Insurance [address] [place] [address] [facility] [address] [place] [address] * Guarantor: ELIZABET HUANG Account Type Relation to Patient Date of Phone Billing Address Personal/Family 1975 ([place]) [address] [place] [address] ANTHEM Member Subscriber Plan / Payer (Ef fective 2019-Present) Name:Serena Huangfer Miladys Relation to Subscriber:Self Name:SALELIZABET Payer ID:[id number] (NAIC) Type:O Address: [id number] ANTHEM Member Subscriber Plan / Payer (Ef fective 2019-Present) Name:Eliazbet Huang Relation to Subscriber:Self Name:SERENA HUANGFER Payer ID:[id number] (NAIC) Type:PPO Address: [id number] ANTHEM Member Subscriber Plan / Payer (Ef fective 2019) Name:AlixElizabet shelton Miladys Relation to Subscriber:Self Name:ELIZABET HUANG Payer ID:[id number] (NAIC) Type:PPO Address: [address] [facility] Member Subscriber Plan / Payer ( fective 2022-) Name:AlixElizabet shelton Miladys Relation to Subscriber:Spouse Name:MONIQUEKAUR IGLESIAS Date of :1977 Payer ID:[id number] (NA) Type:PPO Address: [place] [phone] ANTHEM ANTHEM Member Subscriber Plan / Payer ( fective 2019) Name:Elizabet Huang Relation to Subscriber:Self Name:ELIZABET HUANG Payer ID:[id number] (NAIC) Type:O Address: [facility] [id number] CARE Member Subscriber Plan / Payer ( fective 2022-) Name:Elizabet Huang Relation to Subscriber:Spouse Name:KAUR HUANG Date of :1977 Payer ID:[id number] (NA) Type:PPO Address: [address] Member Subscriber Plan / Payer ( fective 2019-) Name:Elizabet Huang Relation to Subscriber:Self Name:MONIQUEELIZABET IGLESIAS Payer ID:[id number] (NA) Type:O Address: [facility] [id number] [facility] Member Subscriber Plan / Payer ( fective 2019-) Name:Elizabet Huang Relation to Subscriber:Self Name:ALIXELIZABET SHELTON Payer ID:[id number] (NAIC) Type:O Address: [place] [id number] [address] Member Subscriber Plan / Payer ( fective 2022-) Name:Elizabet Huang Relation to Subscriber:Spouse Name:KAUR HUANG Date of :1978 Payer ID:[id number] (NA) Type:PPO Address: [place] [phone] [facility] Member Subscriber Plan / Payer ( fective 2019-) Name:Elizabet Huang Relation to Subscriber:Self Name:MONIQUEELIZABET IGLESIAS Payer ID:[id number] (NA) Type:O Address: [facility] [id number] [facility] Member Subscriber Plan / Payer ( fective 2019-) Name:Elizabet Huang Relation to Subscriber:Self Name:ELIZABET HUANG Payer ID:[id number] (NAIC) Type:PPO Address: [phone] ANTHEM ANTHEM Member Subscriber Plan / Payer ( fective 2019-) Name:Elizabet Huang Relation to Subscriber:Self Name:ELIZABET HUANG Payer ID:[id number] ([facility]) Type:PPO Address: [id number] Care Teams Aircraft Magneto Mechanic Relationship Specialty Start Date End Date Milo Sullivan DO [address] [place] [address] PCP - General 08/17/20
--- OUTSIDE RECORDS SUMMARY | 2025-08-28 16:43 | XMS_ITS | Encounter Summary ---
Author Organization [facility] Address [address] [facility] [place] [address] Care Team Providers Care Assistant General Manager Name Role Phone Milo Sullivan DO Primary Care Provider + Encounter Details Date Type Department Care Team (Late Contact Info) Description 04/20/2024 Lab Requisition [facility] - DermPath Lab [address] [facility] [place] [phone] Madyson Lee MD [address] [facility] [address] [place] [address] Melanocytic nevi of left lower limb, including [...] on file Legal Sex Female 5:29 PM CERTIFIED PHYSICAL THERAPIST ASSISTANT Gender Identity Not on file Sexual Orientation Not on file documented as of this encounter Plan of Treatment Upcoming Encounters Date Type Department Care Team (Late Contact Info) Description 09/04/2025 9:20 AM CDT Appointment [facility] CAT SCAN [address] [place] [phone] Dipak Mendoza MD [address] [facility] [address] [place] [address] documented as of this encounter Procedures Procedure Name Priority Date/Time Associated Diagnosis Comments DERMATOPATHOLOGY Routine 04/20/2024 12:0 0 AM CDT Melanocytic nevi of left lower limb, including hip Neoplasm of uncertain behavior of skin documented in this encounter Results * DERMATOPATHOLOGY (04/20/2024 12:00 AM CDT) Case Report Dermatopathology Report Case: [id number] Authorizing Provider: Madyson Lee MD Collected: 04/20/2024 12:00 AM Ordering Location: [facility] - Received: 04/24/2024 06:17 AM DermPath Lab Pathologist: Alexus Lainez MD Specimen: Skin, left knee 3:43 PM CDT DERMATOPATHOLOGY LABORATORY Final Diagnosis Specimen A. SKIN, left knee: DERMAL SCAR RESIDUAL MELANOCYTIC PROLIFERATION NOT IDENTIFIED (L90.5) 3:43 PM CDT DERMATOPATHOLOGY LABORATORY at 1543 CDT Clinical History Lentiginous junctional nevus with severe atypia. Check margins. 3:43 PM CDT DERMATOPATHOLOGY LABORATORY Gross Description Specimen A: Received is one formalin filled container labeled with the patient's name and designated left knee. The specimen consists of a non-oriented ellipse of skin measuring [id number] mm. The epidermal surface is unremarkable. The [...] characteristic determined by the Dermatopathology Laboratory at [facility], directed by Dr. Lea Lara. These tests need not be, and therefore are not, approved by the [place] Food and Drug Administration. The tests are used for clinical purposes. Billing Codes Specimen Charges Stain Charges 17150 1 4 3:43 PM CDT DERMATOPATHOLOGY LABORATORY Embedded Images 4 3:43 PM CDT DERMATOPATHOLOGY LABORATORY Pathology/Cytolog y TISSUE SPECIMEN FROM SKIN / Unknown 04/20/2024 04/24/2024 6:17 AM CDT Madyson Lee MD LAB - PATHOLOGY/CYTOLOGY ORDER AKBAR Final Result DERMATOPATHOLOGY LABORATORY [facility] - Department of Dermatology [address] [phone] documented in this encounter Visit Diagnoses Diagnosis Melanocytic nevi of left lower limb, including hip Neoplasm of uncertain behavior of skin documented in this encounter Care Teams Assistant General Manager Relationship Specialty Start Date End Date Milo Sullivan DO [address] [place] [address] PCP - General 08/17/20 documented as of this encounter
--- OUTSIDE RECORDS SUMMARY | 2025-08-28 16:44 | XMS_ITS | Patient Health Record ---
Author Organization [facility] [employer] Address [address] [facility] [address] [place] [address] Care Team Providers Care Carpenter Name Role Phone Milo Sullivan DO Primary Care Provider Mica Baldev Perales Unavailable [phone] Merlyn Hinson Unavailable [phone] David Charles Unavailable [phone] Dinesh Chaudhari Unavailable [phone] Allergies Allergen (clinical drug ingredient) Drug/Non Drug Allergy documented on EMR Reaction Allergy Type Onset Date Status vortioxetine Trintellix rash Drug Allergy Act enriqueta Results Component Value Reference Range Notes UDT Reviewed date:07/12/2025 01:18:23 PM Interpretation: Performing Lab: Notes/Report: THC n 0 - 50 ng/ml Cocaine n 0 - 300 ng/ml Amphetamine p 0 - 1000 ng/ml Buprenorphine (BUP) n 0 - 10 ng/ml Secobarbital (Bar) n 0 - 300 ng/ml Oxazepam (BZO) n 0 - 300 ng/ml 6-uskeocmoay-2,2-jmrnsxjz-9,3-diphenylpyrrolidine (IRENE P) n 0 - 300 ng/ml Methamphetamine (MET) n 0 - 1000 ng/ml Methylenedioxymethamphetamine (MDMA) n 0 - 500 ng/ml Morphine (MOP 300/FQN2136) n 0 - 300 ng/ml Methadone (MTD) n 0 - 300 ng/ml Phencyclidine (PCP) n 0 - 25 ng/ml Nortriptyline (TCA) n 0 - 1000 ng/ml Oxycodone n 0 - 300 ng/ml Reason For Referral No Information Medications Medication SIG (Take, Route, Frequency, Duration) Notes Start Date End Date Status Desvenlafaxine ER 50 MG Tablet Extended Release 24 Hour 1 tablet Orally Once a day; Duration: 30 days 08/06/2025 Active buPROPion HCl ER (XL) 300 MG Tablet Extended Release 24 Hour 1 tablet every morning Orally Once a day; Duration: 90 days 07/12/2025 Active Zolpidem Tartrate 10 MG Tablet 1 tablet at bedtime Oral once a day; Duration: 30 days As needed 07/12/2025 10/10/2025 Active PARoxetine HCl 30 MG Tablet 1 tablet once a day for 7 days, 0.5 tablet once a day for 7 days Oral; Duration: 14 days 07/12/2025 Active Amphetamine-Dextroamphetam ine 5 MG Tablet Oral; Duration: 30 Days Not-Taking Albuterol Active Flovent Diskus Activ e Zolpidem Tartrate 10 MG Tablet 1 tablet at bedtime Oral once a day; Duration: 30 days 12/15/2024 Active Lisdexamfetamine Dimesylate 50 MG Capsule 1 capsule in the morning Orally Once a day; Duration: 30 days 08/09/2025 Active buPROPion HCl ER (XL) 300 MG Tablet Extended Release 24 Hour TAKE 1 TABLET BY MOUTH EVERY MORNING; Duration: 90 Active Valtrex 500 MG Tablet 1 tablet Orally Once a day; Duration: 90 days As needed Active PARoxetine HCl 30 MG Tablet TAKE 2 TABLETS BY MOUTH DAILY; Duration: 90 Active Xanax 1 MG Tablet 1 tablet Orally Twice a day Not-Taking Social History Tobacco Use: Social History Observation Description Date Details (start date - stop date) Current Smoker NA - NA Sex Assigned At : Social History Observation Description Sex Assigned At Female Social History Miscellaneous: Social Info Question Answer Notes Advance Care Planning Are you your own decision-maker Yes Do you have Power of [facility] or [facility]? No Safety issues: Are there any firearms in the house? No Social History Social Info Question Answer Notes Household: Marital Status: Number of Adults in household: 2 Number of Children in Household: 1 Level of Education: Professional Schools/Masters /PhD Drug/Alcohol: Social Info Question Answer Notes Drugs Have you used drugs other than those for medical reasons in the past 12 months? No AUDIT-C (Standard) Interpretation Positive Did you have a drink contain ing alcohol in the past year? Yes How often did you have six or more drinks on one occasion in the past year? Less than monthly (1 point) How many drinks did you have on a typical day when you were drinking in the past year? 3 or 4 drinks (1 point) How often did you have a drink containing alcohol in the past year? 2 to 4 times a month (2 points) Tobacco Use: Social Info Question Answer Notes Tobacco Control (Standard) Tobacco use: Current smoker When did you start smoking? 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 Adm its to sleep. Do you drink alcohol? Yes, Socia lly Problems Problem Type SNOMED Code ICD Code Onset Dates Problem Status W/U Status Risk Notes Problem Insomnia disorder related to another mental disorder (66100956) Insomnia due to other mental disorder (F51.05) Active confirmed Problem Attention deficit hyperactivity disorder (942341598) ADHD (attention deficit hyperactivity disorder), combined type (F90.2) Active confirmed Problem Mild recurrent major depression (13963679) MDD (major depressive disorder), recurrent episode, mild (F33.0) Active confirmed Problem Generalized anxiety disorder (39706774) Anxiety, generalized (F41.1) Active confirmed Vital Signs Heart Rate 74 /min 07/12/2025 Blood pressure diastolic 65 mm Hg 07/12/2025 Weight-kg 61.24 kg 07/12/2025 Blood pressure systolic 97 mm Hg 07/12/2025 Weight 135.0 lbs 07/12/2025 Procedures Procedure Date Ordered Date Performed Result Body Sit e ADHD Testing 09/05/2024 N/A ADHD Testing 09/12/2024 N/A Encounters Encounter Location Date Provider Diagnosis [facility] [address] [place] [address] 09/05/2024 Dinesh Chaudhari MDD (major depressiv e disorder), recurrent episode, mild F33.0 and ADHD (attention deficit hyperactivity disorder) evaluation Z13.39 [facility] [address] [place] [address] 09/12/2024 David Charles ADHD (attention defi cit hyperactivity disorder) evaluation Z13.39 [facility] [address] [place] [address] 09/19/2024 Baldev Burdick MDD (major depressiv e disorder), recurrent episode, mild F33.0 ; Anxiety, generalized F41.1 ; Hydrocephalus, unspecified type G91.9 ; S/P ventriculoperitoneal shunt Z98.2 ; Insomnia due to other mental disorder F51.05 ; Herpes simplex B00.9 and ADHD (attention deficit hyperactivity disorder), combined type F90.2 [facility] [address] [place] [address] 11/01/2024 Baldev Burdick [place] [facility] [address] [place] [address] 11/02/2024 Baldev Burdick MDD (major depressiv e disorder), recurrent episode, mild F33.0 ; Anxiety, generalized F41.1 ; Hydrocephalus, unspecified type G91.9 ; S/P ventriculoperitoneal shunt Z98.2 ; Insomnia due to other mental disorder F51.05 ; Herpes simplex B00.9 and ADHD (attention deficit hyperactivity disorder), combined type F90.2 [facility] [address] [facility] [address] [place] [address] 02/05/2025 Baldev Burdick Anxiety, generalized F41.1 ; Insomnia due to other mental disorder F51.05 ; Encounter for screening for depression Z13.31 ; MDD (major depressive disorder), recurrent episode, mild F33.0 ; Encounter for screening for cardiovascular disorders Z13.6 ; Hydrocephalus, unspecified type G91.9 ; S/P ventriculoperitoneal shunt Z98.2 ; Herpes simplex B00.9 and ADHD (attention deficit hyperactivity disorder), combined type F90.2 [facility] [address] [place] [address] 07/12/2025 Baldev Burdick Anxiety, generalized F41.1 ; Insomnia due to other mental disorder F51.05 ; MDD (major depressive disorder), recurrent episode, mild F33.0 ; Hydrocephalus, unspecified type G91.9 ; S/P ventriculoperitoneal shunt Z98.2 and ADHD (attention deficit hyperactivity disorder), combined type F90.2 [facility] [address] [place] [address] 10/26/2024 Baldev Mijaresa [facility], [facility] [address] [place] [address] 02/20/2025 Baldev Burdick Insomnia due to othe r mental disorder F51.05 and ADHD (attention deficit hyperactivity disorder), combined type F90.2 [facility], [facility] [address] [place] [address] 06/21/2025 Baldev Burdick Insomnia due to othe r mental disorder F51.05 [facility], [facility] [address] [place] [address] 11/07/2024 Baldev Mijaresa [facility], [facility] [address] [place] [address] 11/08/2024 Baldev Burdick [facility], [facility] [address] [place] [address] 11/28/2024 Baldev Burdick ADHD (attention defi cit hyperactivity disorder), combined type F90.2 [facility], [facility] [address] [place] [address] 12/29/2024 Baldev Burdick ADHD (attention defi cit hyperactivity disorder), combined type F90.2 and Herpes simplex B00.9 [facility], [facility] [address] [place] [address] 02/13/2025 Baldevlarry Mijaresa MDD (major depressiv e disorder), recurrent episode, mild F33.0 ; Insomnia due to other mental disorder F51.05 and ADHD (attention deficit hyperactivity disorder), combined type F90.2 [facility], [facility] [address] [place] [address] 02/14/2025 Baldev Mijaresa [facility], [facility] [address] [place] [address] 02/14/2025 Baldev Burdick [facility], [facility] [address] [place] [address] 02/18/2025 Baldev Burdick [facility], [facility] [address] [place] [address] 02/19/2025 [facility] [address] [place] [address] 02/20/2025 Baldev Burdick Insomnia due to othe r mental disorder F51.05 and ADHD (attention deficit hyperactivity disorder), combined type F90.2 [facility], [facility] [address] [place] [address] 03/29/2025 Merlyn Hinson ADHD (attention defi cit hyperactivity disorder), combined type F90.2 [facility], [facility] [address] [place] [address] 04/18/2025 Baldev Burdick Insomnia due to othe r mental disorder F51.05 [facility], [facility] [address] [place] [address] 04/18/2025 Baldev Burdick Insomnia due to othe r mental disorder F51.05 and MDD (major depressive disorder), recurrent episode, mild F33.0 [facility], [facility] [address] [place] [address] 04/19/2025 Baldev Burdick Insomnia due to othe r mental disorder F51.05 [facility], [facility] [address] [place] [address] 04/19/2025 Baldev Burdick ADHD (attention defi cit hyperactivity disorder), combined type F90.2 [facility], [facility] [address] [place] [address] 04/19/2025 Baldev Burdick [facility], [facility] [address] [place] [address] 04/23/2025 Baldev Burdick [facility], [facility] [address] [place] [address] 04/24/2025 Baldev Burdick [facility], [facility] [address] [place] [address] 05/08/2025 Baldev Burdick ADHD (attention defi cit hyperactivity disorder), combined type F90.2 [facility], [facility] [address] [place] [address] 05/31/2025 Baldev Burdick ADHD (attention defi cit hyperactivity disorder), combined type F90.2 [facility], [facility] [address] [place] [address] 06/05/2025 Baldev Burdick [facility], [facility] [address] [place] [address] 06/06/2025 Baldev Mijaresa [facility], [facility] [address] [place] [address] 06/19/2025 Baldev Salazaroza [facility], [facility] [address] [place] [address] 06/20/2025 Baldev Salazaroza [facility], [facility] [address] [place] [address] 07/09/2025 Baldev Burdick ADHD (attention defi cit hyperactivity disorder), combined type F90.2 [facility] [address] [place] [address] 07/10/2025 Baldev Burdick [facility], [facility] [address] [place] [address] 08/05/2025 Baldev Burdick MDD (major depressiv e disorder), recurrent episode, mild F33.0 [facility], [facility] [address] [place] [address] 08/05/2025 Baldev Burdick [facility], [facility] [address] [place] [address] 08/06/2025 Baldev Burdick MDD (major depressiv e disorder), recurrent episode, mild F33.0 [facility], [facility] [address] [place] [address] 08/09/2025 Baldev Burdick ADHD (attention defi cit hyperactivity disorder), combined type F90.2 [facility], [facility] [address] [place] [address] 08/14/2025 Baldev Burdick Assessments Encounter Date Diagnosis (ICD Code) Assessment Notes Treatment Notes Treatment Clinical Notes Section Notes 08/05/2025 MDD (major depressive disorder), recurrent episode, mild (ICD-10 - F33.0) 08/06/2025 MDD (major depressive disorder), recurrent episode, mild (ICD-10 - F33.0) 08/09/2025 ADHD (attention deficit hyperactivity disorder), combined type (ICD-10 - F90.2) 07/09/2025 ADHD (attention deficit hyperactivity disorder), combined type (ICD-10 - F90.2) 04/19/2025 ADHD (attention deficit hyperactivity disorder), combined type (ICD-10 - F90.2) 04/19/2025 Insomnia due to other mental disorder (ICD-10 - F51.05) 07/12/2025 Anxiety, generalized (ICD-10 - F41.1) stable 02/13/2025 MDD (major depressive disorder), recurrent episode, mild (ICD-10 - F33.0) 11/02/2024 MDD (major depressive disorder), recurrent episode, [...] to call the office or use the [facility] for future refills. - Continue to monitor the effectiveness of the medication and any potential side effects. 3. Follow-up: Plan: - Schedule a follow-up appointment in 3 months to assess the patient's overall health and any changes in her condition. - Provide information on the patient portal for easy access to medical records and appointment scheduling. 05/08/2025 ADHD (attention deficit hyperactivity disorder), combined type (ICD-10 - F90.2) 09/05/2024 MDD (major depressive disorder), recurrent episode, [...] treatment plan. Pt agrees with treatment plan. 11/28/2024 ADHD (attention deficit hyperactivity disorder), combined type (ICD-10 - F90.2) 12/29/2024 ADHD (attention deficit hyperactivity disorder), combined type (ICD-10 - F90.2) 02/05/2025 Anxiety, generalized (ICD-10 - F41.1) stable 02/20/2025 Insomnia due to other mental disorder (ICD-10 - F51.05) 03/29/2025 ADHD (attention deficit hyperactivity disorder), combined type (ICD-10 - F90.2) 04/18/2025 Insomnia due to other mental disorder (ICD-10 - F51.05) 04/18/2025 Insomnia due to other mental disorder (ICD-10 - F51.05) 05/31/2025 ADHD (attention deficit hyperactivity disorder), combined type (ICD-10 - F90.2) 06/21/2025 Insomnia due to other mental disorder (ICD-10 - F51.05) 02/20/2025 Insomnia due to other mental disorder (ICD-10 - F51.05) 02/20/2025 ADHD (attention deficit hyperactivity disorder), combined type (ICD-10 - F90.2) 07/12/2025 Insomnia due to other mental disorder (ICD-10 - F51.05) 04/18/2025 MDD (major depressive disorder), recurrent episode, mild (ICD-10 - F33.0) 02/20/2025 ADHD (attention deficit hyperactivity disorder), combined type (ICD-10 - F90.2) 12/29/2024 Herpes simplex (ICD-10 - B00.9) 02/05/2025 Insomnia due to other mental disorder (ICD-10 - F51.05) 09/19/2024 Hydrocephalus, unspecified type (ICD-10 - G91.9) [...] cannot be prescribed in the current setting.. 11/02/2024 Anxiety, generalized (ICD-10 - F41.1) stable [...] to call the office or use the [facility] for future refills. - Continue to monitor the effectiveness of the medication and any potential side effects. 3. Follow-up: Plan: - Schedule a follow-up appointment in 3 months to assess the patient's overall health and any changes in her condition. - Provide information on the patient portal for easy access to medical records and appointment scheduling. 02/13/2025 Insomnia due to other mental disorder (ICD-10 - F51.05) 02/13/2025 ADHD (attention deficit hyperactivity disorder), combined type (ICD-10 - F90.2) 11/02/2024 Hydrocephalus, unspecified type (ICD-10 - G91.9) [...] to call the office or use the [facility] for future refills. - Continue to monitor the effectiveness of the medication and any potential side effects. 3. Follow-up: Plan: - Schedule a follow-up appointment in 3 months to assess the patient's overall health and any changes in her condition. - Provide information on the patient portal for easy access to medical records and appointment scheduling. 09/19/2024 S/P ventriculoperiton eal shunt (ICD-10 - [...] treatment plan. Pt agrees with treatment plan. 02/05/2025 Encounter for screening for depression (ICD-10 - Z13.31) 02/05/2025 MDD (major depressive disorder), recurrent episode, mild (ICD-10 - F33.0) cont Paxil Plasma concentrations and pharmacologic effects of Adderall XR Oral Capsule Extended Release 24 Hour 20 MG may be increased by strong CYP2D6 inhibitors (eg, buPROPion HCl ER (XL) Oral Tablet Extended Release 24 Hour 150 MG). 07/12/2025 MDD (major depressive disorder), recurrent episode, mild (ICD-10 - F33.0) cont Paxil Plasma concentrations and pharmacologic effects of Adderall XR Oral Capsule Extended Release 24 Hour 20 MG may be increased by strong CYP2D6 inhibitors (eg, buPROPion HCl ER (XL) Oral Tablet Extended Release 24 Hour 150 MG). 09/19/2024 Insomnia due to other mental disorder [...] treatment plan. Pt agrees with treatment plan. 02/05/2025 Encounter for screening for cardiovascular disorders (ICD-10 - Z13.6) 11/02/2024 S/P ventriculoperiton eal shunt (ICD-10 - [...] to call the office or use the [facility] for future refills. - Continue to monitor the effectiveness of the medication and any potential side effects. 3. Follow-up: Plan: - Schedule a follow-up appointment in 3 months to assess the patient's overall health and any changes in her condition. - Provide information on the patient portal for easy access to medical records and appointment scheduling. 07/12/2025 Hydrocephalus, unspecified type (ICD-10 - G91.9) 07/12/2025 S/P ventriculoperiton eal shunt (ICD-10 - Z98.2) 11/02/2024 Insomnia due to other mental disorder [...] to call the office or use the [facility] for future refills. - Continue [...] 02/05/2025 Hydrocephalus, unspecified type (ICD-10 - G91.9) 09/19/2024 Herpes simplex (ICD-10 - B00.9) 1. [...] plan. Pt agrees with treatment plan. 09/19/2024 ADHD (attention deficit hyperactivity disorder), combined [...] treatment plan. Pt agrees with treatment plan. 02/05/2025 S/P ventriculoperiton eal shunt (ICD-10 - Z98.2) 07/12/2025 ADHD (attention deficit hyperactivity disorder), combined type (ICD-10 - F90.2) . 11/02/2024 Herpes simplex (ICD-10 - B00.9) 1.anxiety: [...] to call the office or use the [facility] for future refills. - Continue [...] to call the office or use the [facility] for future refills. - Continue [...] in bruxism with the introduction of lisdexamfetamine 07/12/2025 Other Marcela Huang, a single mother with a senior daughter, recently took severance from her job due to potential extensive travel requirements and is currently seeking new employment. Attention Deficit Hyperactivity Disorder (ADHD) Assessment: Patient reports good management of ADHD symptoms with current medication regimen. She prefers Vyvanse (lisdexamfetami ne) over previously used Adderall, indicating better symptom control and tolerability. Plan: - Continue Vyvanse - Maintain current dosage and regimen - [facility] [place] [place] - Utilize [facility] for potential cost savings Depression Assessment: Patient reports stable mood with current medication regimen. No active depressive symptoms reported. Plan: - Continue Paxil 60 mg daily (30 mg tablets, take 2) - Continue Wellbutrin Insomnia Assessment: Patient reports occasional need for sleep medication. Plan: - Continue Ambien (zolpidem) as needed for sleep Recurrent Herpes Labialis Assessment: Patient reports experiencing cold sores during times of stress. Plan: - Continue Valacyclovir as needed for cold sore outbreaks Hormone Therapy Assessment: Patient reports recent initiation of hormone therapy with estrogen and testosterone creams, noting subjective improvement in symptoms. Plan: - Continue current hormone therapy regimen - Ongoing management by separate provider the note is transcribed using speech recognition software. It is a reflection of a visit with the patient. It might have some inaccuracy, including medication names and transcribing errors, though efforts have been made to correct them. Plan Of Treatment Pending Test Test Name Order Date UDT 09/05/2024 UDT 09/19/2024 ADHD Testing 09/05/2024 ADHD Testing 09/12/2024 Next Appt Details Provider Name:Baldev brown, 09/18/2025 10:00:00 AM, [address], [place], [address], Insurance Providers Payer Name Payer Address Payer Phone Subscriber Number Group Number Insured Name Patient Relationship to Insured Coverage Start Date Coverage End Date [employer] [address] [address] [place] [address] [id number] MARCELA HUANG Self - patient is the [...] dissection wide excision hysterectomy, , ovaries retained. [employer]IV[employer]GER shunt placements and revisions in 8, 2007, and 2017.
--- NOTE | 2025-08-28 16:56 | ED.DENTAL ---
HPI - Dental/Oral General Chief complaint: Dental/Oral Stated complaint: Dental Time Seen by Provider: 08/28/25 16:55 Source: patient, RN notes reviewed and old records reviewed Mode of arrival: ambulatory Limitations: no limitations History of Present Illness HPI Narrative: 50-year-old female presents to the [facility] with complaints of left lower dental pain. States that she cracked a tooth about 1 week ago to the left lower, tooth 20 Patient is concerned she might have infection, felt feverish. Patient reports that she [facility] appointment [facility]. Treatment prior to arrival: none Related Data Home Medications ?Medication ?Instructions ?Recorded ?Confirmed ?Last Taken ?Type paroxetine HCl 30 mg tablet 60 mg PO DAILY 03/17/22 08/28/25 10/25/22 History zolpidem 10 mg tablet 10 mg PO HS 12/21/23 08/28/25 Unknown History bupropion HCl 300 mg 24 hr tablet, mg PO 03/24/25 07/19/25 Unknown History extended release lisdexamfetamine 50 mg capsule mg 03/24/25 07/19/25 Unknown History (Vyvanse) testosterone transdermal 07/19/25 07/19/25 Unknown History Allergies Allergy/AdvReac Type Severity Reaction Status Date / Time adhesive tape Allergy Mild Rash Verified 03/24/25 18:54 Review of Systems Review of Systems: All systems reviewed & are unremarkable except as noted in HPI and below Constitutional: Constitutional: Reports no additional constitutional complaints ENT: Reports as per HPI Cardiovascular: Cardiovascular: Reports no additional cardiovascular complaints, Denies chest pain and Denies dyspnea Respiratory: Respiratory: Reports no additional respiratory complaints, Denies chest congestion, Denies cough and Denies dyspnea Musculoskeletal: Musculoskeletal: Reports no additional musculoskeletal complaints Integumentary/Breasts: Skin/Breast: Reports system reviewed and no additional complaints, except as docu PMFSH Past Medical History Medical History (Updated 08/28/25 @ 19:22 by Kristen Dowell APRN) Encounter to establish care Colon cancer screening Anxiety and depression ADHD (attention deficit hyperactivity disorder) Asthma Surgical History Surgical History H/O: hysterectomy S/P SENIOR SOLUTIONS CONSULTANT shunt Family History Family History (Updated 07/19/25 @ 13:27 by Amelie Harris MA) Father Depression Hypertension Asthma Mother Cancer Hypertension Sibling Thyroid disorder Social History Social History (Updated 07/19/25 @ 13:33 by Amelie Harris MA) Smoking status: Former smoker Tobacco type: cigarettes Alcohol intake: current Alcohol use details: Social Substance use: never Substance use type: does not use Living arrangements: alone Gender identity (if verbalized by the patient): Female Comments At the time of my signature, I reviewed and agree with the nursing past medical, surgical, social, and family history. There is no relevant family history pertinent to the patient complaint. Exam Const: General: cooperative, healthy appearing, comfortable, no acute distress, well developed, alert and well nourished Nutritional Appearance: well nourished Orientation/consciousness: patient oriented x3 Limitations: no limitations HENMT: Head: normal to inspection Ears: hearing grossly normal bilaterally, external ears normal, TM's normal bilaterally, EAC's normal, mastoids normal and no periauricular adenopathy Teeth image:  1. Posterior inner corner fractured. No erythema, ecchymosis. No drainage. No swelling Eyes: General: appearance normal, both eyes and all related structures Alignment and Position: alignment normal Neck: Neck: normal visual inspection, full ROM, no lymphadenopathy and no meningeal signs Chest: Chest palpation & inspection: normal inspection of the chest Resp: Effort & Inspection: normal respiratory effort and able to speak in complete sentences Auscultation: clear to auscultation bilaterally, no crackles, no rales, no rhonchi and no wheezes Cardio: Rate: regular rate Skin: General skin exam: normal color and no rashes or lesions noted Neuro: General: patient oriented x3, gait normal, moves all extremities and no meningeal signs Cognition (Neuro): normal cognition Speech: normal speech Gait exam (Neuro): Normal gait present Extrem: General: normal to inspection, full ROM, capillary refill normal and normal gait Psych: Appearance: grossly normal and well kempt Mental Status: mental status grossly normal Speech and movement: Normal speech and movement present and Clear speech present Affect: normal affect Attitude: cooperative Course Course Level of Care: Express Care Visit Vital Signs Vital signs: Vital Signs Temperature 97.3 F L 08/28/25 16:30 Pulse Rate 67 08/28/25 16:30 Respiratory Rate 18 08/28/25 16:30 Blood Pressure 128/81 08/28/25 16:30 Pulse Oximetry 100 08/28/25 16:30 Oxygen Delivery Room Air 08/28/25 16:30 Temperature 97.3 F L 08/28/25 16:30 Pulse Rate 67 08/28/25 16:30 Respiratory Rate 18 08/28/25 16:30 Blood Pressure 128/81 08/28/25 16:30 Pulse Oximetry 100 08/28/25 16:30 Oxygen Delivery Room Air 08/28/25 16:30 Reviewed MDM - Dental/Oral MDM Narrative Medical decision making narrative: Patient sitting in exam room. Patient is nontoxic, vitals stable. Patient presents with left lower dental discomfort after cracking at 1 week ago Has not dental appointment tomorrow. Patient is appropriate for outpatient treatment with close follow-up Discharge instructions reviewed with patient, as well as provided in writing per nursing staff. The instructions also include specific and strict return/GO TO THE ER as well as f/u information. All questions have been answered, and the patient deny any further questions with discharge and discharge plan. Some parts of this dictation were generated by voice recognition software and may contain typographical and/or grammatical inaccuracies. Differential Diagnosis Differential diagnosis: Likely gingival abscess, dental caries, toothache, dental abscess, fracture of tooth and aphthous ulcer Critical Care Time Critical Care Time Critical Care Time: No Discharge Plan Discharge Clinical Impression: Toothache Fracture of tooth Qualifiers: Encounter type: initial encounter Patient Disposition: Home Condition: Stable Instructions: Antibiotic Form, Toothache (ED) Additional Instructions: Finish the entire course of antibiotics [place] teeth in use a mouthwash twice daily After every time you eat be sure to use salt water rinses. Apply ice to face to help with pain. Take Tylenol alternating with Motrin as needed for pain. You can alternate every 4 hours Follow-up with a dental provider as already scheduled Follow up with a Primary Care Provider (PCP) about medical needs. A PCP can help keep you healthy by preventive medicine and screening. Go to the ER for New or worsening symptoms. 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 fluticasone propionate 110 mcg/actuation HFA aerosol inhaler 1 puff inhalation Q12H Qty: 12 11RF Rx Instructions: administer with spacer levalbuterol tartrate [Xopenex HFA] 45 mcg/actuation HFA aerosol inhaler 1 - 2 inh inhalation Q6H PRN (Reason: shortness of breath or wheezing) Qty: 15 11RF fluticasone propionate [Flovent HFA] 110 mcg/actuation HFA aerosol inhaler See Rx Instructions .ROUTE .COMPLEX Qty: 24 0RF Dose Instruction: USE 1 PUFF TWICE DAILY Rx Instructions: USE 1 PUFF DAILY Follow-up/Referrals: Nicolasa Talley NP [Primary Care Provider, Family Practice] - 1 Week Time of Disposition: 17:04
== END 2025-08-28 17:06 | disposition home or self-care (01) ==
PROVIDERS: Emergency Provider Nurse Practitioner; PCP Nurse Practitioner Family
DX: K08.89 Other specified disorders of teeth and supporting structures (principal); Z87.891 Personal history of nicotine dependence
CPT/HCPCS: 99213; G0463

== ENCOUNTER 2025-09-01 23:04 | Emergency (ER) | payer OTHER, SELFPAY ==
[2025-09-01 23:08] VITALS: BP 131/77; PULSE 70; RESP 16; TEMP 36.2; O2SAT 94
--- NOTE | 2025-09-02 00:20 | ED_ITS ---
HPI - Dental/Oral General Chief complaint: Dental/Oral Stated complaint: TOOTHACHE Time Seen by Provider: 09/01/25 23:57 History of Present Illness HPI Narrative: Patient is a 50-year-old female who presents to the ER with complaints throbbing tooth pain. She reports she went to urgent care and they put her on Pen V. Patient reports she continues to have flu-like symptoms and has been running a fever. She reports she originally cracked a tooth when she bit into a blanca pit. Patient reports the affected tooth is #19. She denies any other medical history relevant to this ER visit. Patient denies any neck stiffness, jaw pain, respiratory symptoms, sore throat or purulent drainage coming from the site. Related Data Home Medications ?Medication ?Instructions ?Recorded ?Confirmed ?Last Taken ?Type paroxetine HCl 30 mg tablet 60 mg PO DAILY 03/17/2210/25/22 History zolpidem 10 mg tablet 10 mg PO HS 12/21/23 5 Unknown History bupropion HCl 300 mg 24 hr tablet, mg PO 03/24/2506/23 Unknown History extended release lisdexamfetamine 50 mg capsule mg 03/24/25 07/19/25 Un known History (Vyvanse) testosterone transdermal 07/19/25 5 Unknown History Allergies Allergy/AdvReac Type Severity Reaction Status Date / Time adhesive tape Allergy Mild Rash Verified 09/01/25 23:05 Review of Systems Review of Systems: All systems reviewed & are unremarkable except as noted in HPI and below PMFSH Past Medical History Medical History Encounter to establish care Colon cancer screening Anxiety and depression ADHD (attention deficit hyperactivity disorder) Asthma Surgical History Surgical History H/O: hysterectomy S/P 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 HEAD: Normocephalic, atraumatic. Positive cracked tooth at # 19, no redness to gums surrounding tooth NECK: Supple. No adenopathy, no masses. RESPIRATORY: Airway patent, respirations nonlabored. Clear to auscultation bilaterally, no rales, rhonchi, wheezing. CARDIOVASCULAR: Regular rate and rhythm without murmurs, rubs, or gallops. Peripheral pulses 2+ and equal bilaterally. ABDOMINAL: Soft, nontender, nondistended, no hepatosplenomegaly. Normoactive BS. MUSCULOSKELETAL: Moves all extremities. Strength/ROM intact without gross deformities. SKIN: Warm, dry, normal color. No rashes. NEURO: A&O X3. Speech clear. Cranial nerves II-XII intact. No ataxic movements. PSYCHIATRIC: Appropriate mood and affect. Normal interaction. Course Vital Signs Vital signs: Vital Signs Temperature 36.2 C L 09/01/25 23:08 Pulse Rate 70 09/01/25 23:08 Respiratory Rate 16 09/01/25 23:08 Blood Pressure 131/77 09/01/25 23:08 Pulse Oximetry 94 09/01/25 23:08 Oxygen Delivery Room Air 09/01/25 23:08 Temperature 36.2 C L 09/01/25 23:08 Pulse Rate 70 09/01/25 23:08 Respiratory Rate 16 09/01/25 23:08 Blood Pressure 131/77 09/01/25 23:08 Pulse Oximetry 94 09/01/25 23:08 Oxygen Delivery Room Air 09/01/25 23:08 MDM - Dental/Oral MDM Narrative Medical decision making narrative: Patient is a 50-year-old female who presents to the ER with complaints throbbing tooth pain. She reports she went to urgent care and they put her on Pen V. Patient reports she continues to have flu-like symptoms and has been running a fever. She reports she originally cracked a tooth when she bit into a blanca pit. Patient reports the affected tooth is #19. She denies any other medical history relevant to this ER visit. Patient denies any neck stiffness, jaw pain, respiratory symptoms, sore throat or purulent drainage coming from the site. She reports she has an appointment with a dentist on Wednesday, but he recommended she come into the ER to get a different antibiotic prescribed. Medications Ordered: Augmentin p.o. Diagnosis: Dental infection, cracked tooth Patient Education/Shared MDM: Patient will be given her 1st dose of Augmentin here in the ER. She declined any pain medication as she said ibuprofen is helping relieve her symptoms. Patient strongly advised to maintain hydration status upon discharge and follow-up with her dentist on Wednesday, as planned. She will be discharged home with a prescription for Augmentin. Strict return precautions provided. Patient verbalized understanding and is in agreement with plan. Vital signs stable at time of discharge. All questions answered. Differential Diagnosis Differential diagnosis: Likely dental caries, toothache, dental abscess and fracture of tooth Discharge Plan Discharge Clinical Impression: Pain, dental, Fracture of tooth Patient Disposition: Home Condition: Stable Instructions: Antibiotic Form, Toothache (ED) Additional Instructions: Please return to the ER with any worsening symptoms. Follow-up with your dentist on Wednesday, as planned. Take all medications as prescribed, including regularly scheduled medications. Please complete your full dose of antibiotics. 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 fluticasone propionate 110 mcg/actuation HFA aerosol inhaler 1 puff inhalation Q12H Qty: 12 11RF Rx Instructions: administer with spacer levalbuterol tartrate [Xopenex HFA] 45 mcg/actuation HFA aerosol inhaler 1 - 2 inh inhalation Q6H PRN (Reason: shortness of breath or wheezing) Qty: 15 11RF fluticasone propionate [Flovent HFA] 110 mcg/actuation HFA aerosol inhaler See Rx Instructions .ROUTE .COMPLEX Qty: 24 0RF Dose Instruction: USE 1 PUFF TWICE DAILY Rx Instructions: USE 1 PUFF DAILY Follow-up/Referrals: Nicolasa Talley NP [Primary Care Provider, Family Practice] Stand Alone Forms: Work/School Release IP Time of Disposition: 00:29
== END 2025-09-02 00:45 | disposition home or self-care (01) ==
PROVIDERS: Emergency Provider Registered Nurse; PCP Nurse Practitioner Family
DX: K03.81 Cracked tooth (principal); J45.909 Unspecified asthma, uncomplicated; F41.9 Anxiety disorder, unspecified; F32.A Depression, unspecified; F90.9 Attention-deficit hyperactivity disorder, unspecified type; Z87.891 Personal history of nicotine dependence; Z90.710 Acquired absence of both cervix and uterus
CPT/HCPCS: 99283; A9270